=== PATIENT | male | born 1970 | race Caucasian/White ===

== ENCOUNTER → 2017-10-28 09:56 | Outpatient (CLI) | payer OTHER, SELFPAY ==
--- NOTE | 2017-10-28 16:19 | NEURO ---
NCS and/or EMG Patient Report Ordering Doctor: Timothy Marcus DATE OF SERVICE: 10/28/17 Dylan Mays is a 47-year-old male presents for electrodiagnostic testing of the right upper limb. He has a chief complaint of numbness and tingling in the right hand. Electrodiagnostic findings: The right median motor nerve demonstrates normal distal latency, amplitude and conduction velocity. Normal right ulnar motor response, including conduction across the elbow. Normal right median and ulnar f wave. Sensory responses within normal limits. On needle EMG, all muscles tested in the right upper limb showed no evidence of denervation with normal motor unit action potentials. Electrodiagnostic impression: This is a normal electrodiagnostic study in the right upper limb. There is no electrodiagnostic evidence for peripheral neuropathy, including carpal tunnel syndrome. There is no electrodiagnostic evidence for cervical radiculopathy. If there are any further questions, please do not hesitate to contact me.
== END ==
PROVIDERS: Family Provider Family Medicine; PCP Family Medicine; Visit Provider Family Medicine
DX: R20.2 Paresthesia of skin (principal); M62.542 Muscle wasting and atrophy, not elsewhere classified, left hand
CPT/HCPCS: 95886; 95910

== ENCOUNTER → 2018-12-20 09:31 | Outpatient (CLI) | payer OTHER, SELFPAY ==
[2017-10-05 11:28] VITALS: BMI 32.4
[2018-12-20 13:17] LABS: ALB/GLOB Ratio 1.1 RATIO (0.9-2.4); AST(SGOT) 21 U/L (15-37); Alanine Aminotransfer ALT/SGPT 35 U/L (16-61); Albumin, Serum 3.9 g/dL (3.2-5.0); Alkaline Phosphatase 89 U/L (45-117); Anion Gap 16 (5-15); BUN 17 mg/dL (7-18); BUN/Creat Ratio 12.7 RATIO (10-20); Calcium,Total 8.6 mg/dL (8.5-10.1); Chloride 109 mmol/L (98-107); Cholesterol 231 mg/dL (200); Creatinine, Serum 1.34 mg/dL (0.70-1.30); EST Glomerular Filtration Rate 60 mL/min (>60); Est Glom Filt Rate - Afr Amer 73 mL/min (>60); Globulin 3.7 g/dL (2.2-4.2); Glucose 146 mg/dL (74-106); High Density Lipoprotein 63 mg/dL; PSA,Total - Annual Screen 1.14 ng/mL (0.00-4.00); Potassium 3.7 mmol/L (3.5-5.1); Protein, Total 7.6 g/dL (6.4-8.2); Sodium Level 141 mmol/L (136-145); Triglycerides 72 mg/dL; Very Low Density Lipoprotein 14 mg/dL (5-40)
[2018-12-20 13:22] LABS: Rubella IgG > 500.0 IU/mL
[2018-12-22 12:15] LABS: Hep B Surface Antibodies Non Reactive (.); Hepatitis A IgM Antibody Negative (Negative); Mumps Antibody,IgG 93.9 AU/mL (Immune >10.9); Rubeola IgG Ab 63.4 AU/mL (Immune >29.9)
== END ==
PROVIDERS: Family Provider Family Medicine; PCP Family Medicine; Visit Provider Family Medicine
DX: Z00.00 Encounter for general adult medical examination without abnormal findings (principal); Z12.5 Encounter for screening for malignant neoplasm of prostate; Z91.89 Other specified personal risk factors, not elsewhere classified
CPT/HCPCS: 36415; 80053; 80061; 84153; 86706; 86709; 86735; 86762; 86765; G0103

== ENCOUNTER → 2020-02-07 09:54 | Outpatient (CLI) | payer OTHER, SELFPAY ==
[2020-02-07 13:05] LABS: Cholesterol 225 mg/dL (200); High Density Lipoprotein 65 mg/dL; Triglycerides 67 mg/dL; Very Low Density Lipoprotein 13 mg/dL (5-40)
[2020-02-08 10:22] LABS: Glucose 91 mg/dL (74-106)
== END ==
PROVIDERS: Visit Provider Family Medicine
DX: Z00.00 Encounter for general adult medical examination without abnormal findings (principal)
CPT/HCPCS: 36415; 80061; 82947

== ENCOUNTER → 2020-03-15 10:51 | Outpatient (CLI) | payer OTHER, SELFPAY ==
[2017-10-05 11:28] VITALS: BMI 32.4
--- NOTE | 2020-03-15 10:56 | RAD_ITS ---
STUDY: X-RAY - LEFT FOOT CLINICAL: Male, 49 years old. 2ND DIGIT PAIN, NKI TECHNIQUE: 3 view(s) of the foot. COMPARISON: None. FINDINGS: Normal talus, calcaneus, and tarsal bones. Normal visualized subtalar, talonavicular, calcaneocuboid, tarsal and tarsometatarsal articulations. Normal metatarsi. Minimal degenerative changes of the first metatarsophalangeal joint and minimal hypertrophic changes in the head of the first metatarsal. Normal tibial and fibular sesamoid bones. Normal interphalangeal joint of the great toe. Normal phalanges of the great toe. Normal second through fifth metatarsophalangeal joints. Normal interphalangeal joints and phalanges of the lesser toes. The soft tissue structures are unremarkable. RAD/Foot min 3 Views IMPRESSION: Normal second toe, second metatarsal, second metatarsal phalangeal joint and interphalangeal joints. Minimal degenerative changes of the first metatarsophalangeal joint and minimal hypertrophy of the head of the first metatarsal. Electronically Signed: Tejal Kiran MD at 23:04 EDT , Service support ,
== END ==
PROVIDERS: PCP Family Medicine; Referring Provider Family Medicine; Visit Provider Family Medicine
DX: M79.675 Pain in left toe(s) (principal)
CPT/HCPCS: 73630

== ENCOUNTER 2020-03-30 05:55 | Day surgery (SDC) | payer OTHER, SELFPAY ==
[2017-10-05 11:28] VITALS: BMI 32.4
[2020-03-30] VITALS (7 sets, daily range): BP systolic 96–130; BP diastolic 61–92; PULSE 67–76; RESP 16; TEMP 36.1–36.3; O2SAT 94–99; BMI 26.5
--- NOTE | 2020-03-30 | COLBX_PTH ---
PATIENT: EKATERINA DUNCAN LOC: EN U#:[id number] AGE/SX: 49/M ROOM: RE03/30/[address]: Dr. Hardeep Beach MD : 1970 BED: DIS: 03/30/2020 SPEC #: [id number] RECD: 03/30/20 13:46 STATUS: TEAGAN REAmanuel #: [id number] YUE: 03/30/20 00:[address]: Hardeep Beach DEPT: SURGICAL PATHOLOGY RECD BY: Amilcar Smith ENTERED: 03/30/20 13:46 SP TYPE: COLON BX OTHR DR: Dr. Timothy Marcus DO Tissues: Descending colon Procedures: Surgery Specimen Level IV HEADER OPERATION: Colonoscopy - open access (MOD) PRE-OP DIAGNOSIS: Screening TISSUE SUBMITTED: Biopsy of descending colon polyp MICROSCOPIC DIAGNOSIS Descending colon polyp, biopsy: Tubular adenoma. AM:natalia 04/02/20 MICROSCOPIC DESCRIPTION Slides are reviewed. GROSS DESCRIPTION Received in fixative is one container labeled with the patient's name and designated descending colon biopsy. The specimen consists of multiple irregular fragments of light hernandez soft tissue that in aggregate measure 0.6 x 0.5 x 0.1 cm. The specimen is totally submitted in one cassette. / AM:natalia 03/30/20 TC:5 CPT: 30908
[2020-03-30] MEDS: Lactated Ringers 1,000 ML 100 ML IV (06:34)
--- NOTE | 2020-03-30 06:50 | PCM.HP.STD ---
Problem List (1) Screening for intestinal cancer Status: Acute History of Present Illness Date of Admission: 03/30/20 The patient is a 49 year old M who presents for screening colonoscopy today. He presents via open access. He denies any abdominal pain or bright red blood per rectum or melena. He has no family history of colon cancer. He has not had a previous colonoscopy. He states that he otherwise enjoys good health. Past Medical History Medical History: Medical History (Last Updated 10/05/17 @ 11:29 by Sofiya Tony) Back pain M54.9 Allergies morphine Adverse Reaction (Verified 03/30/20 06:21) Vomiting Home Medications: Ambulatory Orders Medication Instructions Recorded NK 03/15/20 Surgical History: Surgical History (Last Updated 10/05/17 @ 11:29 by Sofiya Tony) H/O hand surgery Z98.890 H/O hernia repair Z98.890, Z87.19 Smoking Status: Never smoker Tobacco Use: Non-smoker Review of Systems Constitutional: Denies: Fever Cardiovascular: Denies: Chest Pain Respiratory: Denies: Cough, Shortness of Breath Gastrointestinal: Denies: Abdominal Pain, Melena Endocrine: Denies: Change in Body Habitus VTE Information - Inpt Only VTE Present on Admission: No Patient Problems: Active and Suspected Problems (Last Updated 10/05/17 @ 11:29 by Sofiya Tony) Screening for intestinal cancer (Acute) - Physical Exam Vitals/I&O's: Vital Signs Temp Pulse Resp BP Pulse Ox 97.3 F L 69 16 130/78 H 97 03/30/20 06:23 03/30/20 06:23 03/30/20 06:23 03/30/20 06:23 03/30/20 06:23 Oxygen Delivery Method Room Air Weight: 159 lb 6.307 oz Body Mass Index (BMI) 26.5 General: Alert, Oriented x3, Cooperative, No apparent distress HEENT: Atraumatic Lungs: Clear to auscultation, Normal air movement Cardiovascular: Regular rate, Regular Rhythm Abdomen: Bowel Sounds Present, Soft, Non Tender Extremities: No Calf Tenderness Psych/Mental Status: Normal Affect Laboratory Results 03/26/20 16:40: COVID-19 (JOSE CARLOS) Not Detected Current Medications Lactated Ringer's () 1,000 mls @ 100 mls/hr IV .Q10H LEONORA Last Admin: 03/30/20 06:34 Dose: 100 mls/hr Documented by: Assessment/Plan All Active Problems (Last Updated 10/05/17 @ 11:29 by Sofiya Tony) Screening for intestinal cancer (Acute) URI, acute (Acute) I recommend to the patient a colonoscopy with possible biopsy or polypectomy is indicated. He has had an opportunity to ask and have questions answered. He presents via open access. We will proceed as noted. Hardeep Beach M.D., F.A.C.S. Procedure Criteria Procedure Type: Elective COVID Risk Discussion: The surgeon/proceduralist and patient have discussed in detail the risk of exposure to and/or potential harm posed by the COVID-19 virus with having a surgery/procedure at this time versus the risk of delaying the surgery/procedure. It is not possible to know either the risk of delaying the surgery or procedure or chance of getting an infection with perfect accuracy, but a joint decision was made between the patient and the surgeon/proceduralist to proceed at this time with the scheduled surgery/procedure as indicated on the consent form.
--- NOTE | 2020-03-30 07:23 | OP.CCLET_ITS ---
03/30/2020 Timothy Marcus [address] [place] [address] Re : Colonoscopy procedure for Dylan Suradha Dear Dr. Marcus This procedure was performed on Monday, March 30, 2020. My impressions and recommendations are as follows: Impressions : - Diverticulosis in the sigmoid colon. - One 5 mm polyp in the distal descending colon, removed with a cold biopsy forceps. Resected and retrieved. Recommendations : - Repeat colonoscopy in 5 years for surveillance based on pathology results. - Telephone my office for pathology results in 1 week. - Resume previous diet. - Continue present medications. My findings are described in the full procedure note, which is enclosed. If I can be of further assistance, please feel free to contact me at Doctor phone number(s): Work: . Sincerely, Hardeep Beach MD 03/30/2020 7:22:40 AM This report has been signed electronically.
--- NOTE | 2020-03-30 07:23 | OP.COLON_ITS ---
Patient Name: Dylan Mays Procedure Date: 03/30/2020 6:50 AM Date of : 1970 Age: 49 Procedure: Colonoscopy Indications: Screening for colorectal malignant neoplasm Providers: Hardeep Beach MD Referring MD: Timothy Marcus Medicines: Midazolam 3.5 mg IV, Meperidine 100 mg IV, Ondansetron 4 mg IV Patient Profile: Last Colonoscopy: none. The patient's first colonoscopy is today. Complications: No immediate complications. Procedure: Pre-Anesthesia Assessment: - Prior to the procedure, a History and Physical was performed, and patient medications and allergies were reviewed. The patient's tolerance of previous anesthesia was also reviewed. The risks and benefits of the procedure and the sedation options and risks were discussed with the patient. All questions were answered, and informed consent was obtained. Prior Anticoagulants: The patient has taken no previous anticoagulant or antiplatelet agents. ASA Grade Assessment: I - A normal, healthy patient. After reviewing the risks and benefits, the patient was deemed in satisfactory condition to undergo the procedure. After I obtained informed consent, the scope was passed under direct vision. Throughout the procedure, the patient's blood pressure, pulse, and oxygen saturations were monitored continuously. The colonoscope was introduced through the anus and advanced to the cecum, identified by appendiceal orifice and ileocecal valve. The colonoscopy was performed without difficulty. The patient tolerated the procedure well. The quality of the bowel preparation was good. The ileocecal valve and the appendiceal orifice were photographed. Moderate Sedation: Moderate (conscious) sedation was personally administered by the endoscopist. The following parameters were monitored: oxygen saturation, heart rate, blood pressure, and response to care. Total physician intraservice time was 15 minutes. Scope In: 7:00:38 AM Scope Withdrawal Time 0 hours 8 minutes 5 seconds Scope Out: 7:12:14 AM Total Procedure Duration Time 0 hours 11 minutes 36 seconds Findings: The digital rectal exam was normal. Pertinent negatives include normal prostate (size, shape, and consistency). Scattered diverticula were found in the sigmoid colon. A 5 mm polyp was found in the distal descending colon. The polyp was sessile. The polyp was removed with a cold biopsy forceps. Resection and retrieval were complete. Impression: - Diverticulosis in the sigmoid colon. - One 5 mm polyp in the distal descending colon, removed with a cold biopsy forceps. Resected and retrieved. Recommendation: - Repeat colonoscopy in 5 years for surveillance based on pathology results. - Telephone my office for pathology results in 1 week. - Resume previous diet. - Continue present medications. Procedure Code(s): --- Professional --- 26560, Colonoscopy, flexible; with biopsy, single or multiple 48385, 59, Moderate sedation services provided by the same physician or other qualified health healthcare corporate account director performing the diagnostic or therapeutic service that the sedation supports, requiring the presence of an independent trained observer to assist in the monitoring of the patient's level of consciousness and physiological status; initial 15 minutes of intraservice time, patient age 5 years or older Diagnosis Code(s): --- Professional --- Z12.11, Encounter for screening for malignant neoplasm of colon D12.4, Benign neoplasm of descending colon K57.30, Diverticulosis of large intestine without perforation or abscess without bleeding CPT copyright 2017 [employer]. All rights reserved. The codes documented in this report are preliminary and upon cpc coder review may be revised to meet current compliance requirements. Hardeep Beach MD 03/30/2020 7:22:40 AM This report has been signed electronically. Number of Addenda: 0 Note Initiated On: 03/30/2020 6:50 AM
== END 2020-03-30 08:14 | disposition home or self-care (01) ==
LOC: EN 05:57 → AC 05:57
PROVIDERS: PCP Family Medicine; Referring Provider Family Medicine; Visit Provider Surgery
PROC: 0DJD8ZZ Inspection of Lower Intestinal Tract, Via Natural or Artificial Opening Endoscopic (ICD-10-PCS; CPT 45378; principal; 2020-03-30 06:55)
DX: Z12.11 Encounter for screening for malignant neoplasm of colon (principal); D12.4 Benign neoplasm of descending colon; K57.30 Diverticulosis of large intestine without perforation or abscess without bleeding; Z20.828 Contact with and (suspected) exposure to other viral communicable diseases
CPT/HCPCS: 45380; 87635; 88305; 94799; 99152; 99153; J7120; J2405; U0003

== ENCOUNTER → 2020-04-02 13:27 | Outpatient (CLI) | payer OTHER, SELFPAY ==
[2020-03-30 06:23] VITALS: BMI 26.5
--- NOTE | 2020-04-02 13:29 | RAD_ITS ---
STUDY: X-RAY - RIGHT SHOULDER REASON FOR EXAM: Male, 49 years old. LIFTED SOMETHING AND FELT A POP IN SHOULDER TECHNIQUE: 4 view(s) of the shoulder. COMPARISON: None. FINDINGS: Normal glenohumeral articulation. Normal acromioclavicular joint. Normal acromion. Normal humeral head and visualized proximal humerus. The soft tissue structures are unremarkable. Normal visualized pulmonary apex. RAD/Shoulder min 2 Views IMPRESSION: Normal x-ray examination of the shoulder. Electronically Signed: Wayne Barth, at 15:37 EDT , Service support ,
== END ==
PROVIDERS: PCP Family Medicine; Referring Provider Orthopaedic Surgery; Visit Provider Orthopaedic Surgery
DX: M25.511 Pain in right shoulder (principal)
CPT/HCPCS: 73030

== ENCOUNTER → 2020-05-03 06:21 | Outpatient (CLI) | payer OTHER, SELFPAY ==
[2020-04-02 14:43] VITALS: BMI 26.5
--- NOTE | 2020-05-03 06:22 | MRI_ITS ---
STUDY: MRI RIGHT SHOULDER REASON FOR EXAM: Male, 49 years old. right shoulder pain, some limited r.o.m, pain x 6 mos TECHNIQUE: Standardized fat and water weighted pulse sequences were obtained in all 3 orthogonal planes. COMPARISON: X-ray 04/02/2020 FINDINGS: Mild supraspinatus and infraspinatus tendinosis and peritendinitis as with a 5 x 5 mm concealed interstitial delamination tear of the distal conjoined tendon at the footprint. Normal subscapularis tendon. Normal teres minor tendon. Normal supraspinatus muscle. Normal infraspinatus muscle. Normal subscapularis muscle. Normal teres minor muscle. Normal glenohumeral articulation. Normal humeral head and visualized proximal humerus. Normal biceps labral complex. Longitudinal split tear of the long head of the biceps tendon with superior displacement humeral head consistent with loss of depressor mechanism. There is labral degeneration with areas of fraying, but there is no demonstrated discrete labral tear. Normal capsulo- ligamentous complex. Normal rotator interval. There is mild osteoarthritis of the acromioclavicular articulation. There is a Type II morphology (curved), with a anterior downsloping orientation. There is no subacromial-subdeltoid bursal fluid. Normal visualized coracohumeral and coracoacromial ligaments. Normal quadrilateral space. Normal axillary space. Normal deltoid muscle. Normal trapezius muscle. MRI/Upper Ext Joint Only(Routine) IMPRESSION: 1. Mild supraspinatus and infraspinatus tendinosis and peritendinitis as with a 5 x 5 mm concealed interstitial delamination tear of the distal conjoined tendon at the footprint. No muscular atrophy. 2. Longitudinal split tear of the long head of the biceps tendon with the superior displacement humeral head consistent with loss of depressor mechanism. 3. Mild acromioclavicular joint arthrosis. Anterolateral downsloping acromion with thickening of the coracoacromial ligament produces lateral outlet stenosis. Electronically Signed: Fady Joyner MD at 8:16 EDT Tel , Service support ,
== END ==
PROVIDERS: PCP Family Medicine; Referring Provider Orthopaedic Surgery; Visit Provider Orthopaedic Surgery
DX: M25.511 Pain in right shoulder (principal)
CPT/HCPCS: 73221

== ENCOUNTER → 2020-05-28 18:02 | Outpatient (CLI) | payer OTHER, SELFPAY ==
[2020-05-11 08:09] VITALS: BMI 26.5
== END ==
PROVIDERS: PCP Family Medicine; Referring Provider Family Medicine; Visit Provider Family Medicine
DX: Z03.818 Encounter for observation for suspected exposure to other biological agents ruled out (principal)
CPT/HCPCS: 87635; C9803; U0003

== ENCOUNTER 2020-08-29 17:00 | Outpatient (RCR) | payer OTHER, SELFPAY ==
[2020-05-11 08:09] VITALS: BMI 26.5
--- NOTE | 2020-05-16 18:42 | HP.PTEVAL ---
Patient's Visit Information EKATERINA DUNCAN is a 49 year old M referred to Physical Therapy by Dr. Darinel Menjivar DO with a diagnosis of R shoulder impingement, Biceps tendonitis, Bursitis. Date of Evaluation: 05/16/20 Physical Therapist: CONOR Vicente - Visit Plan Frequency: 2-3x /Week Duration: 4-6 Weeks Plan: 2-3 X/ week for 4-6 weeks for scapular strengthening, posterior joint mobs, RC and bicep (eccentric) strengthening, postural exercises with HEP and modalities for pain to decrease inflammation due to impingement/bicep pain with HEP - Subjective Pt reports that he hurt his shoulder 6 mo ago (thinking with firewood or tractor) and still hurting bad after 3 weeks and saw PCP and tried in home PT exercises and see if got better and tuffed it out and still having trouble and he did MRI and couple things going on. He can do surgery or tough out with PT. He said torn bicep, R shoulder impingement and bursitis. He has increase pain with swatting at a fly with flyswatter and almost brought him to tears. Sleep on it hurts, sleeping the pain wakes him up at times. As long as he does not reach out away from his body. - Pain R shoulder Pain Intensity (Out of 10): 3 Pain Intensity Range: 9 - Objective R handed... R director of market analysis strength 114# L director of market analysis strength 60# hand accident 2010 so comparing sides not accurate. R shoulder AROM: IR T8, Full FLexion but increase popping and pain at end range. ABD to approx 160 with increase pain at end range, ER to 32 degrees with increase pain at end range. L shoulder AROM: IR T12, Full Flexion and ABD with no pain and AROM ER to 55 degrees with no pain. + HK test for impingement. + empty can test for pain. Palpation: tender under the acromion and bicep groove on the R. Explained pathology of impingement and importance of posture. Posture: slouched posture with PPT and rounded shoulders... pt has tightness in posterior capsule on the R shoulder. PROM R shoulder: painful at end range flexion and abd... some painful popping heard/reported that it was painful. - Goals Goal 1:: I HEP Goal Time Frame: 4-6 Weeks Goal 2:: Increase R shoulder AROM to full AROM painfree into flex/abd/ER Goal Time Frame: 4-6 Weeks Goal 3:: Sit with upright posture and no rounded shoulders. Goal Time Frame: 4-6 Weeks Goal 4:: Decrease R shoulder pain to not have pain when reaching out in front of him. Goal Time Frame: 4-6 Weeks - Rehabilitation Potential Rehabilitation Potential: Good - Anticipated Interventions Thank you for the opportunity to evaluate your patient. For Medicare and Medicare HMO plans, please review the plan of care and approve it. It will need to be FAXED BACK to us at [phone] for Medicare purposes. For Medicare only, by signing this I certify the plan of care. Please let me know if there are questions or concerns regarding this plan of care. Physician Signature: Date:
--- NOTE | 2020-06-13 19:01 | HP.PTREVAL ---
Dr. Darinel Menjivar, DO, It has been my pleasure to treat EKATERINA DUNCAN over the last 7 visits for R shoulder impingement, Biceps tendonitis, Bursitis. Please see the progress note below for an update on the physical therapy plan of care! Subjective: Pt reports that he is feeling a little better. He is still favoring his arm and does not do anything with it. He is using the therabands, IR/ER and rows and does it with yellow and getting too easy. Pt did not come to some of his appointments because he was sick....not covid. Objective/Function: Increased burning with S?L ER with a towel and no mid trap substitution Plan Plan: ADD eccentric bicep curls. 2-3 X/ week for additional 4-6 weeks for scapular strengthening, posterior joint mobs, RC and bicep (eccentric) strengthening, postural exercises with HEP and modalities for pain to decrease inflammation due to impingement/bicep pain with HEP Goals Goal 1:: I HEP Goal Time Frame: 4-6 Weeks Goal 2:: Increase R shoulder AROM to full AROM painfree into flex/abd/ER Goal Time Frame: 4-6 Weeks Goal 3:: Sit with upright posture and no rounded shoulders. Goal Time Frame: 4-6 Weeks Goal 4:: Decrease R shoulder pain to not have pain when reaching out in front of him. Goal Time Frame: 4-6 Weeks Anticipated Interventions Please do not hesitate to contact me at [phone] by phone or if you have questions or concerns regarding this new plan of care! Sincerely, Izzy Dozier, MPT
--- NOTE | 2020-08-01 18:22 | HP.PTREVAL ---
Dr. Darinel Menjivar, DO, It has been my pleasure to treat EKATERINA DUNCAN over the last 15 visits for R shoulder impingement, Biceps tendonitis, Bursitis. Please see the progress note below for an update on the physical therapy plan of care! Subjective: Pt is doing well for the most part. He is getting better... not getting worse. Still reaching behind and above his head are still issues. He still struggles wtih laying on his R shoulder.... it was better so he is contributing it to doing something he shouldn't Objective/Function: No issue with any exercises today... we had his arm a little into scaption for 90 ER/IR as opposed to full Abd... Increase pain with palpation to the anterior shoulder under acrominion and possible bicep grrove Plan Plan: Focus on introduction of more scapular exercises and may do US to anterior shoulder if pt still compoaining of pain there.... 2-3 X/ week for additional 4-6 weeks for scapular strengthening, posterior joint mobs, RC and bicep (eccentric) strengthening, postural exercises with HEP and modalities for pain to decrease inflammation due to impingement/bicep pain with HEP Goals Goal 1:: I HEP Goal Time Frame: 4-6 Weeks Goal Progress: Goal Met Goal 2:: Increase R shoulder AROM to full AROM painfree into flex/abd/ER Goal Time Frame: 4-6 Weeks Goal 3:: Sit with upright posture and no rounded shoulders. Goal Time Frame: 4-6 Weeks Goal 4:: Decrease R shoulder pain to not have pain when reaching out in front of him. Goal Time Frame: 4-6 Weeks Goal Progress: Progressing Anticipated Interventions Please do not hesitate to contact me at [phone] by phone or if you have questions or concerns regarding this new plan of care! Sincerely, CONOR Vicente
== END 2020-08-29 19:00 | disposition home or self-care (01) ==
LOC: PT 17:00
PROVIDERS: PCP Family Medicine; Referring Provider Orthopaedic Surgery; Visit Provider Orthopaedic Surgery
DX: M75.41 Impingement syndrome of right shoulder (principal); M75.21 Bicipital tendinitis, right shoulder; M75.51 Bursitis of right shoulder
CPT/HCPCS: 97035; 97110; 97161

== ENCOUNTER 2020-12-30 09:02 | Emergency (ER) | payer OTHER, SELFPAY ==
[2020-05-11 08:09] VITALS: BMI 26.5
[2020-12-30 09:03] VITALS: BP 137/76; PULSE 79; RESP 17; TEMP 36.1; O2SAT 97; BMI 28.0
--- NOTE | 2020-12-30 09:37 | RAD_ITS ---
STUDY: X-RAY - LUMBAR SPINE REASON FOR EXAM: Male, 50 years old. Injury/Pain TECHNIQUE: 3 view(s) of the lumbar spine were obtained. COMPARISON: None FINDINGS: Normal lumbar lordosis. Mild levoscoliosis centered at L4. There is a normal alignment of the vertebrae. Normal vertebral bodies and endplates. Normal disc space heights. The soft tissue structures are unremarkable. RAD/Lumbar Spine 2 or 3 Views IMPRESSION: 1. No acute fracture or subluxation. 2. Mild levoscoliosis. Electronically Signed: Fady Joyner MD at 10:29 EDT Tel , Service support ,
[2020-12-30] MEDS: Naproxen 500 MG Tablet PO (10:04)
--- NOTE | 2020-12-30 10:12 | EDS_ITS ---
HPI History of Present Illness Chief Complaint: Back Informant: patient Onset/Context/Timing Onset: Yesterday Injury: bending Timing: Continuous Quality: Sharp and - (Stabbing) Location: Lumbar and Right Leg Worsened by: improves with Nothing Relieved by: Nothing Associated Symptoms Associated Symptoms: Numbness and Radiation to Right Leg; Negative for Radiation to Left Leg, Fever, Abdominal Pain, Dysuria, Unable to Ambulate, Unable to Transfer, Urinary Retention, Urinary Incontinence, Constipation and Fecal Incontinence Narrative Narrative: Patient presents with back pain that began yesterday. Patient states she was bending forward when the pain began. Patient states pain is over the right lower lumbar area. Patient denies any trauma or injury. Patient states the pain radiates down his right lower leg. Patient admits to some numbness in his right lower leg. Patient denies any bowel or bladder changes. Patient denies any saddle anesthesia. [facility] Medical History Back pain Home Medications naproxen 500 mg PO BID PRN #20 tab 12/30/20 [Rx Last Taken Unknown] Allergy/AdvReac Type Severity Reaction Status Date / Time morphine AdvReac Vomiting Verified 12/30/20 09:02 Surgical History H/O hand surgery H/O hernia repair Social History Smoking Status: Never smoker alcohol intake: never ROS ROS ED Constitutional Constitutional ED: Denies chills or fever(s) Eyes Eyes: Denies blurry vision or change in vision ENT ENT ED: Denies rhinorrhea or sore throat Cardiovascular Cardiovascular: Denies chest pain or palpitations Respiratory/Chest Respiratory/Chest: Denies cough or dyspnea Gastrointestinal Gastrointestinal: Denies nausea or vomiting Genitourinary Genitourinary ED: Denies dysuria or hematuria Musculoskeletal Musculoskeletal: Reports back pain; Denies neck pain Integumentary Denies abscess or rash Neurologic Neurologic: Reports paresthesias RLE; Denies headache(s) or weakness Allergic/Immunologic Allergic/Immunologic ED: Denies mouth swelling or urticaria EXAM Physical Exam Const Vital Signs: 12/30/20 09:03 Temperature 96.9 F L Temperature Source Temporal Pulse Rate 79 Respiratory Rate 17 Blood Pressure 137/76 H Blood Pressure Mean 96 Pulse Ox 97 Oxygen Delivery Method Room Air Positive well nourished and well developed General Appearance ED: well developed HEENT Reports moist mucous membranes Neck supple and no JVD Back/Spine Back/Spine Narrative: There is tenderness over the lumbar spine and right lumbar paraspinal muscles. There is some tenderness over the sciatic notch. Range of motion was slightly limited in all motions of the lumbar spine secondary to pain. There is no edema or ecchymosis noted. Strength is 5/5 bilaterally in the lower extremities. There are no sensory deficits noted. Lumbar Spine / Lower Back: straight leg raise negative bilaterally Neuro oriented x3 and no sensory deficits noted Sensorium / Orientation: alert Motor Exam: strength 5/5 throughout Deep Tendon Reflexes: Rt Patellar (L4): 1+, Lt Patellar (L4): 1+, Rt Ankle (S1): 1+ and Lt Ankle (S1): 1+ Deep Tendon Reflexes Back: Rt Patellar (L4): 1+, Lt Patellar (L4): 1+, Rt Ankle (S1): 1+ and Lt Ankle (S1): 1+ Psych mental status grossly normal MDM MDM MDM Narrative Medical decision making narrative: Patient was given a dose of Naprosyn here. X-rays of the lumbar spine were obtained. There are 3 views. On my interpretation, there is some mild degenerative changes. There is no acute fracture. There is no spondylolisthesis or spondylolysis. Radiologist also interpreted the x-rays and agrees. Patient was given a prescription for Naprosyn. Patient was instructed to use ice to the area. Patient was instructed to follow-up with his primary care physician in 5 to 7 days. Patient was instructed return if worse in any way. Patient understood and was agreeable with the plan. All questions were answered. Radiography X-Ray: LS SPine, Read by ED Physician, Read by Radiologist, No Fracture, Normal Bony Alignment and DJD Diagnostic Testing: Radiology Impression Lumbar Spine X-Ray 12/30/20 09:37 IMPRESSION: 1. No acute fracture or subluxation. 2. Mild levoscoliosis. Electronically Signed: Fady Joyner MD at 10:29 EDT Tel , Service support , Discharge Plan Triage Chief Complaint: Back ED Provider: Connor Lyles Dx/Rx/DC Orders Clinical Impression: Sciatica of right side Prescriptions: New naproxen 500 MG tablet 500 mg PO BID PRN Qty: 20 RF: 0 Primary Care Provider: Timothy Marcus Referrals: Timothy Marcus DO [Primary Care Provider] - 5-7 Days Disposition Disposition: Home, self care
== END 2020-12-30 11:15 | disposition home or self-care (01) ==
PROVIDERS: Emergency Provider Emergency Medicine; PCP Family Medicine
DX: M54.41 Lumbago with sciatica, right side (principal)
CPT/HCPCS: 72100; 99283

== ENCOUNTER → 2022-12-25 | Outpatient (CLI) | payer OTHER, SELFPAY ==
[2022-12-25 15:50] LABS: ALB/GLOB Ratio 1.1 RATIO (0.9-2.4); AST(SGOT) 48 U/L (15-37); Alanine Aminotransfer ALT/SGPT 92 U/L (16-61); Alkaline Phosphatase 76 U/L (45-117); Anion Gap 7 (5-15); BUN 18 mg/dL (7-18); Calcium,Total 8.9 mg/dL (8.5-10.1); Chloride 108 mmol/L (98-107); Cholesterol 227 mg/dL (200); Creatinine, Serum 0.86 mg/dL (0.70-1.30); EST Glomerular Filtration Rate 99 mL/min (>60); Est Glom Filt Rate - Afr Amer 120 mL/min (>60); Globulin 3.8 g/dL (2.2-4.2); Glucose 82 mg/dL (74-106); High Density Lipoprotein 64 mg/dL; Potassium 3.6 mmol/L (3.5-5.1); Protein, Total 7.8 g/dL (6.4-8.2); Sodium Level 139 mmol/L (136-145); Triglycerides 137 mg/dL; Very Low Density Lipoprotein 27 mg/dL (5-40)
== END | disposition home or self-care (01) ==
LOC: BFHLAB 13:45
PROVIDERS: PCP Family Medicine; Referring Provider Family Medicine; Visit Provider Family Medicine
DX: Z00.00 Encounter for general adult medical examination without abnormal findings (principal)
CPT/HCPCS: 36415; 80053; 80061; 84153; G0103

== ENCOUNTER 2024-03-25 10:53 | Day surgery (SDC) | payer OTHER, SELFPAY ==
[2024-03-25] VITALS (8 sets, daily range): BP systolic 87–115; BP diastolic 60–84; PULSE 65–78; RESP 16; TEMP 36.1–36.2; O2SAT 94–97; BMI 29.6
[2024-03-25] MEDS: Lactated Ringers 1,000 ML 15 ML IV (11:25)
--- NOTE | 2024-03-25 11:38 | PRE.ANES_ITS ---
ASA Classification* ASA Classification ASA Classification: 2 Assessment & Plan Anesthesia* Anesthesia Assessment Anesthesia Assessment: Discussed sedation and/or anesthesia options, risks, benefits, and alternatives with patient/parents/legal guardian/POA. Questions invited. The patient/parents/legal guardian/POA seems to understand and agrees to proceed with anesthesia plan. Reviewed the physical assessment, medical history, allergy history and patient home medications list prior to surgery/procedure/anesthetic and documented any changes. Performed airway and anesthesia risk assessments. Anesthesia Type Anesthesia Type: MAC History Source History Obtained from:: Patient and Chart Anesthesia Focused Assessment* Temperature: 97 F Pulse Rate: 78 Blood Pressure: 115/84 Respiratory Rate: 16 Pulse Ox: 97 Oxygen Delivery Method: Room Air Airway Assessment Mouth opens: >3 cm Mallampati Score: IV Teeth Condition: Caps/Crowns (Patient has several crowns that are all tight.) Neck Range of motion (ROM): Full ROM Focused Labs Anesthesia Preop lab: CBC WBC 5.8 K/mm3 (4.4-11.0) 02/17/14 11:11 RBC 5.22 M/mm3 (4.6-6.2) 02/17/14 11:11 Hgb 16.3 g/dl (13.0-16.5) 02/17/14 11:11 Hct 45.4 % (40-54) 02/17/14 11:11 Plt Count 246 K/mm3 (150-450) 02/17/14 11:11 CHEMISTRY Potassium 3.6 mmol/L (3.5-5.1) 12/25/22 13:46 Sodium 139 mmol/L (136-145) 12/25/22 13:46 BUN 18 mg/dL (7-18) 12/25/22 13:46 Creatinine 0.86 mg/dL (0.70-1.30) 12/25/22 13:46 Glucose 82 mg/dL (74-106) 12/25/22 13:46 COAG Pre-Assessment Diagnosis/Proposed Procedure Planned Operative Procedure(s): EGD/CSCOPE Anesthesia History 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 When Was Last Pacemaker Check QUESTION #4 FULL TEXT: You/Your Family Experience fever (hyperthermia) with Anesthesia Last Oral Intake Last Oral intake: Last Oral Intake NPO since 07:00 03/25/24 11:18 Meds taken in AM with sips of water? Meds patient instructed to take am of surgery Any additional information?: Yes Meds patient instructed to take am of surgery: Patient finished prep at 8:00. PONV PONV - unemployment insurance hearing officer: PONV - unemployment insurance hearing officer Female No 03/22/24 09:19 HX of Motion Sickness Yes 03/22/24 09:19 HX of N/V After Surgery Yes 03/22/24 09:19 Non-Smoker Yes 03/22/24 09:19 Duration of Surgery greater No 03/22/24 09:19 than 60 minutes Number of Risk Factors 3 03/22/24 09:19 PONV Score Moderate Risk 03/22/24 09:19 Height & Weight Height & Weight: Anesthesia: Height & Weight Height 5 ft 5 in 03/25/24 11:18 Weight: 80.739 kg 03/25/24 11:18 Body Mass Index (BMI) 29.6 03/25/24 11:18 Respiratory Assessment Respiratory Assessment - unemployment insurance hearing officer: Respiratory Tract Infection Hx - unemployment insurance hearing officer Hx Respiratory Tract Infection No 03/22/24 09:19 STOP Sleep Apnea STOP Sleep Apnea - unemployment insurance hearing officer: STOP Sleep Apnea - unemployment insurance hearing officer Hx Hypertension No 03/22/24 09:19 Hx Sleep Apnea No 03/22/24 09:19 CPAP No 03/30/20 07:17 BIPAP Do you snore loudly (louder No 03/22/24 09:19 than talking or can be heard Do you often feel tired/ No 03/22/24 09:19 fatigued/ sleepy during daytime? Has anyone observed you stop No 03/22/24 09:19 breathing during sleep? STOP Results Negative 03/22/24 09:19 QUESTION #5 FULL TEXT : Do you snore loudly (louder than talking or can be heard through closed doors)? 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 Specify any problems Hx of Preganancy in last 3 N/A 03/22/24 09:19 Months Nurse Filling Out Transfusion DSCHRIBER 03/22/24 09:19 & Questions: Date: 03/22/24 03/22/24 09:19 Time: 09:21 03/22/24 09:19 Patient unable to answer at this time (ie. confused, unrespo /Reproduction History /Reproductive History - unemployment insurance hearing officer: /Reproductive Hx- unemployment insurance hearing officer Hx Now No 03/22/24 09:19 Gestational Age (in weeks): EDC: Hx Hx Para Hx Section SAB No 03/22/24 09:19 Active Medications Active Medications: Current Medications Generic Name Dose Route Start Last Admin Trade Name Freq PRN Reason Stop Dose Admin Lactated Ringer's 1,000 mls @ 15 mls/hr 03/25/24 11:15 03/25/24 11:25 IV 15 mls/hr .Q48H LEONORA Administration PFSH Medical History Wears glasses Injury of back Non-smoker History of colon polyps GERD (gastroesophageal reflux disease) Hyperlipidemia Atrophy of left hand muscles Home Medications ?Medication ?Instructions ?Recorded ?Last Taken ?Type omeprazole 40 mg capsule,delayed 40 mg PO DAILY 03/01/24 Unknown History release Allergy/AdvReac Type Severity Reaction Status Date / Time morphine AdvReac Vomiting Verified 03/25/24 11:17 Surgical History History of esophagogastroduodenoscopy (EGD) Hx of colonoscopy H/O hernia repair H/O hand surgery Social History household members: significant other and children number of children: 2 current occupational status: employed 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
--- NOTE | 2024-03-25 12:00 | COLBX_PTH ---
PATIENT: EKATERINA DUNCAN LOC: EN U#:[id number] AGE/SX: 53/M ROOM: RE03/25/[address]: Dr. Fredy Tatum DO : 1970 BED: DIS: 03/25/2024 SPEC #: [id number] RECD: 03/25/24 14:18 STATUS: TEAGAN REAmanuel #: [id number] YUE: 03/25/24 12:[address]: Fredy Tatum DEPT: SURGICAL PATHOLOGY RECD BY: Flavio Vega ENTERED: 03/28/24 09:10 SP TYPE: COLON BX OTHR DR: Dr. Timothy Marcus DO Tissues: A - Esophagus, NOS B - Esophagus, NOS C - Sigmoid colon biopsy Procedures: Special Stain Group I Surgery Specimen Level IV Alcian Blue/PAS (control) HEADER OPERATION: Colonoscopy, EGD, biopsy and polypectomy PRE-OP DIAGNOSIS: Gastroesophageal reflux disease TISSUE SUBMITTED: A- Distal esophagus biopsy, B- Random esophagus biopsy, C- Sigmoid polyp MICROSCOPIC DIAGNOSIS A. Distal esophagus, biopsy: Fragments of gastric mucosa with chronic inflammation. No evidence of goblet cell metaplasia. See comment. B. Esophagus, random biopsy: Suggestive of eosinophilic esophagitis. See comment. C. Sigmoid colon polyp, biopsy: Tubular adenoma. AM/ 03/29/2024 COMMENT A. Alcian blue/PAS stain with matched control is used in the evaluation of the specimen. B. The eosinophils number between 5-15 per high power field. Clinical correlation is suggested. MICROSCOPIC DESCRIPTION Slides are reviewed. GROSS DESCRIPTION A. Received in fixative is one container labeled with the patient's name and designated Distal esophagus biopsy. The specimen consists of two irregular fragments of light hernandez soft tissue that in aggregate measure 0.6 x 0.3 x 0.1 cm. The specimen is totally submitted in one cassette. B. Received in fixative is one container labeled with the patient's name and designated Random esophagus biopsy. The specimen consists of multiple irregular fragments of light hernandez soft tissue that in aggregate measure 0.6 x 0.5 x 0.1 cm. The specimen is totally submitted in one cassette. C. Received in fixative is one container labeled with the patient's name and designated Sigmoid polyp. The specimen consists of two irregular fragments of light hernandez soft tissue that in aggregate measure 0.4 x 0.3 x 0.1 cm. The specimen is totally submitted in one cassette. SJ.mr 03/28/2024 TC:3 CPT:46934x4,32932
--- NOTE | 2024-03-25 12:10 | PCM.HP.BLA ---
History and Physical Date of Admission: 03/25/24 53 M who presents to the office today for establishment with I for worsening GERD. For about 1 month he has been having severe reflux symptoms that wake him up at night. He feels acid coming up his throat. He has also been having coughing episodes after eating. He was seen by his PCP and started on omeprazole 40 mg daily and Carafate. He feels the omeprazole has helped but the Carafate has not. He denies abdominal pain, diarrhea, constipation, weight loss, or fever. Says he has been gaining some weight and wonders if this has made his GERD worse. He has had an EGD in the past but not sure when or what they found. He does have some recollection that he had his esophagus dilated. Colonoscopy 03.30.[address] Beach: - Diverticulosis in the sigmoid colon. One 5 mm polyp in the distal descending colon, removed with a cold biopsy forceps. Resected and retrieved. Biopsy came back as tubular adenoma ROS Const Constitutional: Positive for weight change; No fatigue or fever(s) ENT ENT: No difficulty swallowing Gastro GI: Positive for heartburn; No abdominal pain, belching, bloating, change in bowel habits, change in stool character, coffee ground emesis, constipation, cramping, diarrhea, difficulty swallowing, feeling full early, excessive flatus, incontinent of stools, Vomiting blood/hematemesis, Blood in stool, loose stools, Black,tarry stools, nausea/dyspepsia, pain with swallowing, vomiting or other Musc Musculoskeletal: Positive for stiffness; No joint pain Skin Skin: No yellowing of the eye or itchy eyes Psych Psychiatric: No anxiety and No depression Endo Endocrine: Positive for weight change; No fatigue Aller/Imm Allergy/Immunologic: No itchy eyes Ethan/Lymp Hematologic/Lymphatic: No easy bleeding or easy bruising Exam Const General: cooperative and comfortable Nutritional Appearance: average body habitus and well nourished [facility] Head: normal to inspection Ears: hearing grossly normal bilaterally Nose: external nose normal Face and sinus: normal facial exam Mouth: oral mucosae normal Throat: posterior oropharynx normal Eyes General: appearance normal, both eyes and all related structures Neck Neck: normal visual inspection Chest Chest palpation & inspection: normal inspection of the chest and normal palpation of entire chest wall Resp Effort & Inspection: normal respiratory effort Auscultation: Bilateral: Clear to Auscultation Cardio Palpation: normal PMI Rate: regular rate Rhythm: regular rhythm GI Inspection: normal to inspection Auscultation: normal bowel sounds Percussion: normal to percussion Palpation: no hepatosplenomegaly Skin General: no rashes or lesions noted Neuro General: patient alert Extrem General: normal to inspection Psych Affect: normal affect Assessment and Plan Assessment and Plan (1) Gastroesophageal reflux disease: Plan: Patient is here today to establish with [facility] for worsening GERD. -He will continue taking omeprazole 40 mg daily -He will no longer take the Carafate -Recommended taking famotidine as needed for breakthrough pain -We will schedule him for EGD and colonoscopy. He has hx of tubular adenoma and last colon was 4 years ago. Recommended just getting both procedures done at the same time since he will need colonoscopy in a year anyway. I have examined the patient and the H&P has been reviewed. There are no clinical changes since date of exam.
--- NOTE | 2024-03-25 13:03 | OP.CCLET_ITS ---
03/25/2024 Timothy Marcus [address] [facility] [place] [address] Re : Upper GI endoscopy procedure for Dylna Mays Dear Dr. Marcus This procedure was performed on Monday, March 25, 2024. My impressions and recommendations are as follows: Impressions : - LA Grade A reflux esophagitis with no bleeding. Biopsied. - Esophageal mucosal changes suggestive of eosinophilic esophagitis. - Large hiatal hernia. - No gross lesions in the first portion of the duodenum. - Biopsies were taken with a cold forceps for evaluation of eosinophilic esophagitis. Recommendations : - Discharge patient to home. - Resume previous diet. - Continue present medications. - Await pathology results. My findings are described in the full procedure note, which is enclosed. If I can be of further assistance, please feel free to contact me at . Sincerely, Fredy Tatum, 03/25/2024 1:02:37 PM This report has been signed electronically.
--- NOTE | 2024-03-25 13:03 | OP.EGD_ITS ---
Patient Name: Dylan Mays Procedure Date: 03/25/2024 11:51 AM Date of : 1970 Age: 53 Procedure: Upper GI endoscopy Indications: Heartburn Providers: Fredy Tatum DO Referring MD: Fredy Tatum DO Medicines: Monitored Anesthesia Care Patient Profile: This is a 53 year old male. Refer to note in patient chart for documentation of history and physical. Patient has symptoms of chronic heartburn. Complications: No immediate complications. Procedure: Pre-Anesthesia Assessment: - Prior to the procedure, a History and Physical was performed, and patient medications and allergies were reviewed. The patient is competent. The risks and benefits of the procedure and the sedation options and risks were discussed with the patient. All questions were answered and informed consent was obtained. Patient identification and proposed procedure were verified by the physician in the pre-procedure area. Mental Status Examination: alert and oriented. Airway Examination: normal oropharyngeal airway and neck mobility. Respiratory Examination: clear to auscultation. CV Examination: normal. Prophylactic Antibiotics: The patient does not require prophylactic antibiotics. Prior Anticoagulants: The patient has taken no anticoagulant or antiplatelet agents. ASA Grade Assessment: II - A patient with mild systemic disease. After reviewing the risks and benefits, the patient was deemed in satisfactory condition to undergo the procedure. The anesthesia plan was to use monitored anesthesia care (MAC). Immediately prior to administration of medications, the patient was re-assessed for adequacy to receive sedatives. The heart rate, respiratory rate, oxygen saturations, blood pressure, adequacy of pulmonary ventilation, and response to care were monitored throughout the procedure. The physical status of the patient was re-assessed after the procedure. After obtaining informed consent, the endoscope was passed under direct vision. Throughout the procedure, the patient's blood pressure, pulse, and oxygen saturations were monitored continuously. The Colonoscope was introduced through the mouth, and advanced to the second part of duodenum. The upper GI endoscopy was accomplished without difficulty. The patient tolerated the procedure well. Scope In: 12:32:32 PM Scope Out: 12:38:22 PM Total Procedure Duration Time 0 hours 5 minutes 50 seconds Findings: LA Grade A (one or more mucosal breaks less than 5 mm, not extending between tops of 2 mucosal folds) esophagitis with no bleeding was found 36 to 39 cm from the incisors. Biopsies were taken with a cold forceps for histology. Verification of patient identification for the specimen was done. Estimated blood loss was minimal. Mucosal changes including feline appearance, longitudinal furrows and small-caliber esophagus were found in the upper third of the esophagus and in the middle third of the esophagus. Biopsies were obtained from the proximal and distal esophagus with cold forceps for histology of suspected eosinophilic esophagitis. Verification of patient identification for the specimen was done. Estimated blood loss was minimal. A large hiatal hernia was present. No other significant abnormalities were identified in a careful examination of the stomach. No gross lesions were noted in the first portion of the duodenum. Impression: - LA Grade A reflux esophagitis with no bleeding. Biopsied. - Esophageal mucosal changes suggestive of eosinophilic esophagitis. - Large hiatal hernia. - No gross lesions in the first portion of the duodenum. - Biopsies were taken with a cold forceps for evaluation of eosinophilic esophagitis. Recommendation: - Discharge patient to home. - Resume previous diet. - Continue present medications. - Await pathology results. Procedure Code(s): --- Professional --- 04896, Esophagogastroduodenoscopy, flexible, transoral; with biopsy, single or multiple CPT copyright 2021 [employer]. All rights reserved. The codes documented in this report are preliminary and upon grinder review may be revised to meet current compliance requirements. Fredy Tatum DO 03/25/2024 1:02:37 PM This report has been signed electronically. Number of Addenda: 0 Note Initiated On: 03/25/2024 11:51 AM
--- NOTE | 2024-03-25 13:04 | OP.COLON_ITS ---
Patient Name: Dylan Mays Procedure Date: 03/25/2024 12:38 PM Date of : 1970 Age: 53 Procedure: Colonoscopy Indications: Screening for colorectal malignant neoplasm Providers: Fredy Tatum DO Referring MD: Fredy Tatum DO Medicines: Monitored Anesthesia Care Patient Profile: This is a 53 year old male. Refer to note in patient chart for documentation of history and physical. Patient has symptoms of chronic heartburn. Last Colonoscopy: date unknown. Unable to locate last colonoscopy report. Complications: No immediate complications. Procedure: Pre-Anesthesia Assessment: - Prior to the procedure, a History and Physical was performed, and patient medications and allergies were reviewed. The patient is competent. The risks and benefits of the procedure and the sedation options and risks were discussed with the patient. All questions were answered and informed consent was obtained. Patient identification and proposed procedure were verified by the physician in the pre-procedure area. Mental Status Examination: alert and oriented. Airway Examination: normal oropharyngeal airway and neck mobility. Respiratory Examination: clear to auscultation. CV Examination: normal. Prophylactic Antibiotics: The patient does not require prophylactic antibiotics. Prior Anticoagulants: The patient has taken no anticoagulant or antiplatelet agents. ASA Grade Assessment: II - A patient with mild systemic disease. After reviewing the risks and benefits, the patient was deemed in satisfactory condition to undergo the procedure. The anesthesia plan was to use monitored anesthesia care (MAC). Immediately prior to administration of medications, the patient was re-assessed for adequacy to receive sedatives. The heart rate, respiratory rate, oxygen saturations, blood pressure, adequacy of pulmonary ventilation, and response to care were monitored throughout the procedure. The physical status of the patient was re-assessed after the procedure. After I obtained informed consent, the scope was passed under direct vision. Throughout the procedure, the patient's blood pressure, pulse, and oxygen saturations were monitored continuously. The Colonoscope was introduced through the anus and advanced to the cecum, identified by appendiceal orifice and ileocecal valve. The colonoscopy was performed without difficulty. The patient tolerated the procedure well. The quality of the bowel preparation was adequate. The ileocecal valve, appendiceal orifice, and rectum were photographed. Scope In: 12:40:02 PM Scope Withdrawal Time 0 hours 13 minutes 0 seconds Scope Out: 12:55:06 PM Total Procedure Duration Time 0 hours 15 minutes 4 seconds Findings: The perianal and digital rectal examinations were normal. A 5 mm polyp was found in the sigmoid colon. The polyp was sessile. The polyp was removed with a cold snare. Resection and retrieval were complete. Verification of patient identification for the specimen was done. Estimated blood loss was minimal. A few small-mouthed diverticula were found in the sigmoid colon. The exam was otherwise without abnormality on direct and retroflexion views. Impression: - One 5 mm polyp in the sigmoid colon, removed with a cold snare. Resected and retrieved. - Diverticulosis in the sigmoid colon. - The examination was otherwise normal on direct and retroflexion views. Recommendation: - Discharge patient to home. - Resume previous diet. - Continue present medications. - Await pathology results. - Repeat colonoscopy in 5 years for surveillance. Procedure Code(s): --- Professional --- 47632, Colonoscopy, flexible; with removal of tumor(s), polyp(s), or other lesion(s) by snare technique CPT copyright 2021 [employer]. All rights reserved. The codes documented in this report are preliminary and upon pharmacist critical care review may be revised to meet current compliance requirements. Fredy Tatum DO 03/25/2024 1:04:37 PM This report has been signed electronically. Number of Addenda: 0 Note Initiated On: 03/25/2024 12:38 PM
--- NOTE | 2024-03-25 13:05 | OP.CCLET_ITS ---
03/25/2024 Timothy Marcus [address] [place] [address] Re : Colonoscopy procedure for Dylan Mays Dear Dr. Marcus This procedure was performed on Monday, March 25, 2024. My impressions and recommendations are as follows: Impressions : - One 5 mm polyp in the sigmoid colon, removed with a cold snare. Resected and retrieved. - Diverticulosis in the sigmoid colon. - The examination was otherwise normal on direct and retroflexion views. Recommendations : - Discharge patient to home. - Resume previous diet. - Continue present medications. - Await pathology results. - Repeat colonoscopy in 5 years for surveillance. My findings are described in the full procedure note, which is enclosed. If I can be of further assistance, please feel free to contact me at . Sincerely, Fredy Tatum, 03/25/2024 1:04:37 PM This report has been signed electronically.
--- NOTE | 2024-03-25 13:06 | PCM.POST.ANE ---
Anesthesia: Postop Eval I Current Vital Signs Temperature: 97.2 F Pulse Rate: 71 Blood Pressure: 91/64 Respiratory Rate: 16 Pulse Ox: 95 Oxygen Delivery Method: Room Air Assessment Airway patent: Yes Spontaneous unlabored respirations: Yes Mental status: Asleep nausea: No Vomiting: No Anesthesia Complication: No Fluid Hydration Crystalloid volume administer (ml): 800 Total IV fluid infused: 800 Progress Note Anesthesia document: Postop Eval 1 completed: Yes
--- NOTE | 2024-03-25 13:14 | PCM.POSTANE2 ---
Anesthesia Postop Eval I Sum Postop Eval Completion status Anesthesia document: Postop Eval 1 completed: Yes Anesthesia Postop Eval I Summary Anesthesia Postop Eval I Summary: Anesthesia Postop Eval I: Assessment Summary Airway patent Yes 03/25/24 13:07 [email or web address] Spontaneous unlabored Yes 03/25/24 13:07 [email or web address] respirations Mental status Asleep 03/25/24 13:07 [email or web address] nausea No 03/25/24 13:07 [email or web address] Vomiting No 03/25/24 13:07 [email or web address] Anesthesia Postop Eval I: Fluid Summary Crystalloid volume administer 800 03/25/24 13:07 [email or web address] (ml) Colloids volume administered ( ml) Blood Product volume administered (ml) Total IV fluid infused 800 03/25/24 13:07 [email or web address] Anesthesia Postop Eval I: Summary Notes Anesthesia Complication No 03/25/24 13:07 [email or web address] Anesthesia Complication Comment: Post-operative progress note Anesthesia: Postop Eval II Evaluation Mental status: Awake Pain Level: 0 nausea: No Vomiting: No
== END 2024-03-25 13:49 | disposition home or self-care (01) ==
LOC: EN 10:56 → AC 10:57
PROVIDERS: PCP Family Medicine; Referring Provider Family Medicine; Visit Provider Internal Medicine Gastroenterology
PROC: 0DJD8ZZ Inspection of Lower Intestinal Tract, Via Natural or Artificial Opening Endoscopic (ICD-10-PCS; CPT 45378; principal; 2024-03-25 11:55)
DX: Z12.11 Encounter for screening for malignant neoplasm of colon (principal); D12.5 Benign neoplasm of sigmoid colon; K57.30 Diverticulosis of large intestine without perforation or abscess without bleeding; K21.00 Gastro-esophageal reflux disease with esophagitis, without bleeding; K44.9 Diaphragmatic hernia without obstruction or gangrene; Z79.899 Other long term (current) drug therapy; Z86.010 Personal history of colon polyps
CPT/HCPCS: 43239; 45385; 88305; 88312; J7120; J2405

== ENCOUNTER → 2024-04-19 | Outpatient (CLI) | payer OTHER, SELFPAY ==
[2024-04-23 16:09] LABS: Beef 0.39 kU/L (Class I); Chocolate <0.10 kU/L (Class 0); Codfish <0.10 kU/L (Class 0); Corn 0.23 kU/L (Class 0/I); Egg, Whole 0.15 kU/L (Class 0/I); Milk (Cow) 0.75 kU/L (Class II); Mussels <0.10 kU/L (Class 0); Peanut <0.10 kU/L (Class 0); Salmon <0.10 kU/L (Class 0); Shrimp <0.10 kU/L (Class 0); Soybean <0.10 kU/L (Class 0); Tuna <0.10 kU/L (Class 0); Wheat 1.45 kU/L (Class III)
== END | disposition home or self-care (01) ==
LOC: LAB 12:07
PROVIDERS: PCP Family Medicine; Referring Provider Internal Medicine Gastroenterology; Visit Provider Internal Medicine Gastroenterology
DX: K20.0 Eosinophilic esophagitis (principal)
CPT/HCPCS: 36415; 86003; 86005

== ENCOUNTER → 2024-05-06 | Outpatient (CLI) | payer OTHER, SELFPAY ==
--- NOTE | 2024-05-06 12:52 | NM_ITS ---
CLINICAL: 53-year-old male with history of hiatal hernia and gastroesophageal reflux disease. SEMI-SOLID PHASE 99m Tc SULFUR COLLOID GASTRIC EMPTYING STUDY COMPARISON: None available FINDINGS: The patient was administered 1.0 mCi of 99m Tc sulfur colloid mixed with oatmeal and consumed per os. Image acquisitions in the anterior-posterior projections were obtained for 60 minutes. There is prompt visualization of the stomach. There is no gastroesophageal reflux identified. The T ? linear fit was calculated to be 34.08 minutes, (Normal: 12-56 minutes). NM/Gastric Emptying Study IMPRESSION: 1. NORMAL 99m Tc sulfur colloid semi-solid phase (oatmeal) gastric emptying imaging examination. A. There is normal and preserved semi-solid phase gastric emptying compared to normal controls. (Tammy et al, J Nucl Med Tech 38: 186, 2010). Electronically Signed: Fady Garay DO at 12:10 EDT ,
== END | disposition home or self-care (01) ==
LOC: NM 12:45
PROVIDERS: PCP Family Medicine; Referring Provider Internal Medicine Gastroenterology; Visit Provider Internal Medicine Gastroenterology
DX: K21.9 Gastro-esophageal reflux disease without esophagitis (principal)
CPT/HCPCS: 78264; A9541

== ENCOUNTER → 2024-10-03 | Outpatient (CLI) | payer OTHER, SELFPAY ==
[2024-10-03 17:58] LABS: Absolute Lymphocyte Count 2.12 X10^3/uL (0.83-4.51); Absolute Neutrophil Count 3.1 X10^3/uL (2.0-7.7); Basophil# 0.04 X10^3/uL; Basophil% 0.7 % (0-1); Eosinophil# 0.13 X10^3/uL; Eosinophils% 2.2 % (0-5); Lymphocyte # 2.12 X10^3/ul (0.83-4.51); Mean Corp Hgb Conc 34.8 g/dL (32-36); Mean Corpuscular Hgb 30.8 pg (27.0-32.0); Mean Corpuscular Volume 88.6 fL (80-94); Mean Platelet Vol. 9.4 fl (6.2-12.0); Monocyte# 0.52 X10^3/uL; Monocyte% 8.8 % (0-10); NRBC Flagged by Analyzer 0 % (0-5); Neutrophil # 3.06 X10^3/uL (2.7-7.7); Platelet Count 217 K/mm3 (150-450); RBC Distribution Width CV 12.7 % (11.6-14.6); RBC Distribution Width SD 41.3 fl (35.1-43.9); Red Blood Count 5.19 M/mm3 (4.6-6.2); White Blood Count 5.9 K/mm3 (4.4-11.0)
[2024-10-03 21:27] LABS: ALB/GLOB Ratio 1.5 RATIO (0.9-2.4); AST(SGOT) 30 U/L (<=37); Alanine Aminotransfer ALT/SGPT 37 U/L (<=46); Albumin, Serum 4.6 g/dL (3.5-5.0); Alkaline Phosphatase 86 U/L (40-129); BUN 12 mg/dL (4-19); BUN/Creat Ratio 13.9 RATIO (10-20); Creatinine, Serum 0.86 mg/dL (0.70-1.20); EST Glomerular Filtration Rate 102 (>60); Glucose 87 mg/dL (70-99); PSA,Total - Annual Screen 1.15 ng/mL (0.02-4.00); Protein, Total 7.6 g/dL (5.9-8.4); Total Bilirubin 0.63 mg/dL (0.00-1.30)
[2024-10-03 22:07] LABS: Anion Gap 14 (5-15); Calcium,Total 9.6 mg/dL (7.6-11.0); Carbon Dioxide 22.5 mmol/L (21.0-32.0); Chloride 102 mmol/L (98-108); Potassium 4.1 mmol/L (3.3-5.1); Sodium Level 138 mmol/L (133-145)
[2024-10-03 23:00] LABS: Cholesterol 225 mg/dL (<=200); High Density Lipoprotein 63 mg/dL; Low Density Lipoprotein Calc. 143 mg/dL; Triglycerides 96 mg/dL; Very Low Density Lipoprotein 19 mg/dL (5-40); cholesterol:hdl ratio screen 3.58
== END | disposition home or self-care (01) ==
LOC: BFHLAB 16:17
PROVIDERS: PCP Family Medicine; Referring Provider Family Medicine; Visit Provider Family Medicine
DX: Z00.00 Encounter for general adult medical examination without abnormal findings (principal); Z12.5 Encounter for screening for malignant neoplasm of prostate
CPT/HCPCS: 36415; 80053; 80061; 84153; 85025; G0103

== ENCOUNTER 2024-11-30 16:45 | Observation (INO) | payer OTHER, SELFPAY ==
[2024-11-30 16:45] VITALS: BP 157/102; PULSE 85; RESP 20; TEMP 36.1; O2SAT 97; BMI 29.9
--- NOTE | 2024-11-30 16:55 | ED.RN ---
INFORMED DR. ELIZALDE AND DR. SIMMONS ABOUT PT SX. SWELLING OF EYES AND LIPS, L SIDED FACIAL DROOP AND DECREASED SENSATION ON L FACE AND ARM. NO NEW ORDERS AT THIS TIME.
--- NOTE | 2024-11-30 17:01 | CT_ITS ---
EXAM: STROKE BRAIN/HEAD WITHOUT CONT CLINICAL HISTORY: 54 y/o M with NEURO DEFICIT, ACUTE, STROKE SUSPECTED. Left-sided paresthesia. COMPARISON: None. TECHNIQUE: Routine CT imaging of the head without IV contrast. Additional multiplanar reformats were obtained. Dose reduction techniques were used including intermediate exposure control (AEC),iterative reconstruction technique, and/or mA and/or KV dose adjustments based on patient's size. FINDINGS: No acute intracranial hemorrhage or herniation. Minimal scattered supratentorial white matter hypodensities. The bullock-white matter interfaces are otherwise maintained. No ventriculomegaly. The basal cisterns are patent. The orbits are unremarkable. Mild mucosal thickening of the left maxillary sinus. The visualized paranasal sinuses and mastoid air cells are otherwise well-aerated. No acute calvarial fracture or scalp hematoma. CT/STROKE Brain/Head without Cont IMPRESSION: No acute intracranial finding. Reading Location: [id number]
--- NOTE | 2024-11-30 17:01 | EKG12_ITS ---
Test Reason : STROKE ALERT Blood Pressure : */* mmHG Vent. Rate : 73 BPM Atrial Rate : 73 BPM P-R Int : 188 ms QRS Dur : 84 ms QT Int : 400 ms P-R-T Axes : 34 -10 4 degrees QTcB Int : 440 ms Normal sinus rhythm Inferior infarct , age undetermined Abnormal ECG Confirmed by HERNANDEZ BLACK MD ([id number]), clinical editor ODELL LOREDO ([id number]) on 12/01/2024 1:26:44 PM Referred By: Confirmed By: HERNANDEZ BLACK MD
--- NOTE | 2024-11-30 17:02 | CT_ITS ---
PROCEDURE: STROKE CTA HEAD AND NECK W/CON 11/30/2024 REASON FOR EXAM: NEURO DEFICIT, ACUTE, STROKE SUSPECTED TECHNIQUE: CTA imaging of the head and neck from the aortic arch to the skull vertex with out contrast and with intravenous contrast. Multiplanar and multisequence images were obtained. CONTRAST: Omnipaque 350 VOLUME: 100 mL Not Provided Gauge IV One or more dose reduction techniques were used (e.g., Automated exposure control, adjustment of the mA and/or kV according to patient size, use of iterative reconstruction technique). COMPARISON: None FINDINGS: Aortic Arch: Normal size and branching pattern. No significant atherosclerotic plaque. Brachiocephalic and Subclavians: Unremarkable RIGHT Carotid: Right CCA: Unremarkable. Right ICA: Unremarkable. Maximum stenosis (NASCET): 0 % Right ECA: Unremarkable. LEFT Carotid: Left CCA: Unremarkable. Left ICA: Unremarkable. Maximum stenosis (NASCET): 0 % Left ECA: Unremarkable. Vertebrals: Codominant. Arise from the subclavians. Both vertebrals form the basilar. RIGHT Vertebral: Unremarkable. LEFT Vertebral: Unremarkable. Anatomy: [place] anatomy is normal. Aneurysm or avm: No intracranial aneurysms or large vascular malformations are identified. Anterior cerebral arteries: Unremarkable: Middle cerebral arteries: Unremarkable. Basilar artery: Unremarkable. Posterior cerebral arteries: Unremarkable. Other major branches of the posterior circulation: Unremarkable. Major venous structures: Unremarkable. Other findings: Neck: No lymphadenopathy. Lungs: Lung apices are clear. Bones: Mild degenerative changes of the cervical spine. CT/STROKE CTA Head AND Neck W/Con IMPRESSION: Patent anterior and posterior intracranial and extracranial circulation without hemodynamically significant stenosis. Reading Location: [facility]
--- NOTE | 2024-11-30 17:02 | EDS_ITS ---
HPI History of Present Illness Chief Complaint: Stroke Alert Informant: patient Onset/Context/Timing Onset: Hours (1.5) Context: Sudden Onset Timing: Continuous Quality: Numbness Location: Left face, left arm, left leg Worsened by: Nothing Relieved by: Nothing Narrative Narrative: Patient presents with possible allergic reaction that occurred today. Patient states he started having symptoms approximately 90 minutes prior to arrival. Patient noted some weakness to the left side of his face and numbness to the left arm and leg. Patient denies any extremity weakness. Patient does admit to a mild headache. Patient denies any visual changes. Patient denies any d ifficulties with speech. Patient denies any difficulty swallowing. Patient admits to a mild cough but denies any shortness of breath. Patient denies any chest pain. [facility] Medical History Wears glasses Injury of back Non-smoker History of colon polyps GERD (gastroesophageal reflux disease) Hyperlipidemia Atrophy of left hand muscles Home Medications ?Medication ?Instructions ?Recorded ?Last Taken ?Type farcawb-cpjoqgfxlqnuk-onuzqlpi 250 1 tab PO Q4H PRN he adache 11/30/24 11/30/24 History mg-250 mg-65 mg tablet (Excedrin Extra Strength) omeprazole 40 mg capsule,delayed 40 mg PO DAILY 11/29/24 History release Allergy/AdvReac Type Severity Reaction Status Date / Time morphine AdvReac Vomiting Verified 11/30/24 16:45 Surgical History History of esophagogastroduodenoscopy (EGD) Hx of colonoscopy H/O hernia repair H/O hand surgery Social History household members: significant other and children number of children: 2 current occupational status: employed current occupation: [employer] Smoking Status: Never smoker alcohol intake: never substance use type: does not use ROS ROS ED Constitutional Constitutional ED: Denies chills or fever(s) Eyes Eyes: Denies blurry vision or change in vision ENT ENT ED: Denies rhinorrhea or sore throat Cardiovascular Cardiovascular: Denies chest pain or palpitations Respiratory/Chest Respiratory/Chest: Reports cough; Denies dyspnea Gastrointestinal Gastrointestinal: Denies nausea or vomiting Genitourinary Genitourinary ED: Denies dysuria or hematuria Musculoskeletal Musculoskeletal: Denies back pain or neck pain Integumentary Denies abscess or rash Neurologic Neurologic: Reports headache(s) and paresthesias LUE and LLE; Denies weakness Allergic/Immunologic Allergic/Immunologic ED: Denies mouth swelling or urticaria EXAM Physical Exam Const Vital Signs: 11/30/24 16:45 11/30/24 17:01 11/30/24 17:45 Temperature 96.9 F L Temperature Source Temporal Pulse Rate 85 79 Respiratory Rate 20 H 19 H Blood Pressure 157/102 H 125/91 H Blood Pressure Mean 120 102 Pulse Ox 97 94 Oxygen Delivery Method Room Air Room Air Room Air 11/30/24 18:02 Temperature 98.3 F Temperature Source Pulse Rate 79 Respiratory Rate 19 H Blood Pressure 125/91 H Blood Pressure Mean 102 Pulse Ox 94 Oxygen Delivery Method Positive well nourished and well developed General Appearance ED: well developed and NAD HEENT Reports moist mucous membranes Neck supple and no JVD Resp normal respiratory effort and clear to auscultation bilaterally Cardio regular rate and regular rhythm GI non-tender and non-distended Palpation: soft Extremity normal to inspection General Extremety ED: Negative for edema or tenderness General Extremity: Negative for edema Neuro oriented x3 Neuro Narrative: There is left facial weakness. There is decreased sensation to light touch over the left upper and lower extremities. Sensorium / Orientation: alert Motor Exam: strength 5/5 throughout Psych mental status grossly normal MDM MDM MDM Narrative Medical decision making narrative: Stroke alert was called due to the onset of symptoms approximately 1-1/2 hours prior to arrival. CT scan of the brain will be obtained to assess for stroke and intracranial bleeding. CTA of the head and neck will be obtained to assess for large vessel occlusion and carotid stenosis. EKG will be obtained to assess for cardiac dysrhythmia and cardiac ischemia. CBC will be obtained to assess for leukocytosis or anemia. Basic metabolic profile will be obtained to assess for electrolyte abnormality and renal function. PT with INR and PTT will be obtained to assess for coagulopathy. High-sensitivity troponin series will be ordered to assess for cardiac ischemia. Lab Data Attestation: I reviewed the patient's lab results. Lab results narrative: CBC was reviewed and was within normal limits. Basic metabolic profile was reviewed and was within normal limits. PT with INR and PTT were reviewed and were within normal limits. High-sensitivity troponin was reviewed and was less than 6. BGT was reviewed and was normal at 85. Labs: Laboratory Results - last 24 hr 11/30/24 11/30/24 17:01 17:04 WBC 6.8 RBC 5.16 Hgb 16.2 Hct 45.7 MCV 88.6 MCH 31.4 MCHC 35.4 RDW Std Deviation 42.1 RDW Coeff of Angie 12.9 Plt Count 215 MPV 8.7 Immature Gran % (Auto) 0.300 Neut % (Auto) 57.1 Lymph % (Auto) 31.5 Mchenry % (Auto) 7.8 Eos % (Auto) 2.7 Baso % (Auto) 0.6 Absolute Neuts (auto) 3.9 Absolute Lymphs (auto) 2.13 Nucleated RBC % 0 PT 13.1 INR 1.0 APTT 25.8 Sodium 139 Potassium 4.0 Chloride 104 Carbon Dioxide 24.3 Anion Gap 11 BUN 15 Creatinine 1.02 Estim Creat Clear Calc 78.01 Est GFR (MDRD) Non-Af 86 BUN/Creatinine Ratio 14.5 Glucose 93 Calcium 9.0 Troponin T High Sens < 6 POC Glucose 85 Radiography Diagnostic Testing: Clinical Impression(s) from Imaging Studies Brain CT 11/30/24 17:01 IMPRESSION: No acute intracranial finding. Reading Location: [facility] CT scan of the brain was obtained. There is no acute intracranial abnormality. This was interpreted by the radiologist and was also independently reviewed by myself. Management Discussion w/another healthcare provider: Hospitalist (Dr. Solis) and Senior Database Programmer (Dr. Encarnacion) Treatment and Re-Evaluation :: Patient was evaluated by stroke neurologist. He recommended aspirin and statin. He recommended admission for MRI and further evaluation for possible stroke. He does not recommend tenecteplase at this time since his NIH score is very low. Case was discussed with the hospitalist. He will admit the patient to his service. Patient understood and was agreeable with the plan. All questions were answered. Discharge Plan Triage Chief Complaint: Stroke Alert Other Complaint: Allergic Reaction ED Provider: Connor Lyles Dx/Rx/DC Orders Clinical Impression: Paresthesias, Facial weakness, Elevated blood pressure reading Prescriptions: No Action Excedrin Extra Strength 250-250-65 mg tablet 1 tab PO Q4H PRN (Reason: headache) omeprazole 40 mg capsule,delayed release(DR/EC) 40 mg PO DAILY Primary Care Provider: Timothy Marcus Referrals: Timothy Marcus DO [Primary Care Provider] - Print Language: Lao Disposition Disposition: Acute Care Hospital [facility]
[2024-11-30 17:10] VITALS: BMI 29.9
[2024-11-30 17:12] LABS: Absolute Lymphocyte Count 2.13 X10^3/uL (0.83-4.51); Absolute Neutrophil Count 3.9 X10^3/uL (2.0-7.7); Basophil# 0.04 X10^3/uL; Basophil% 0.6 % (0-1); Eosinophil# 0.18 X10^3/uL; Eosinophils% 2.7 % (0-5); Hematocrit 45.7 % (40-54); Hemoglobin 16.2 g/dL (13.0-16.5); Lymphocyte # 2.13 X10^3/ul (0.83-4.51); Lymphocyte % 31.5 % (19-41); Mean Corp Hgb Conc 35.4 g/dL (32-36); Mean Corpuscular Hgb 31.4 pg (27.0-32.0); Mean Corpuscular Volume 88.6 fL (80-94); Mean Platelet Vol. 8.7 fl (6.2-12.0); Monocyte# 0.53 X10^3/uL; Monocyte% 7.8 % (0-10); NRBC Flagged by Analyzer 0 % (0-5); Neutrophil # 3.87 X10^3/uL (2.7-7.7); Neutrophil % 57.1 % (47-70); Platelet Count 215 K/mm3 (150-450); RBC Distribution Width CV 12.9 % (11.6-14.6); RBC Distribution Width SD 42.1 fl (35.1-43.9); Red Blood Count 5.16 M/mm3 (4.6-6.2); White Blood Count 6.8 K/mm3 (4.4-11.0)
[2024-11-30 17:19] LABS: Bedside Glucose 85 mg/dL (74-106)
[2024-11-30 17:38] LABS: Prothrombin Time (Protime)PT. 13.1 SECONDS (11.7-14.9)
[2024-11-30 17:39] LABS: Partial Thromboplast Time 25.8 Seconds (24.1-36.2)
[2024-11-30 17:43] LABS: Anion Gap 11 (5-15); BUN 15 mg/dL (4-19); BUN/Creat Ratio 14.5 RATIO (10-20); Carbon Dioxide 24.3 mmol/L (21.0-32.0); Chloride 104 mmol/L (98-108); Creatinine, Serum 1.02 mg/dL (0.70-1.20); EST Glomerular Filtration Rate 86 (>60); Estimated Creatinine Clearance 78.01 ml/min (50-250); Glucose 93 mg/dL (70-99); Sodium Level 139 mmol/L (133-145); Troponin T High Sensitivity < 6 ng/L (<=22)
[2024-11-30 17:45] VITALS: BP 125/91; PULSE 79; RESP 19; O2SAT 94
[2024-11-30] MEDS: Aspirin 81 MG TAB.CHEW 324 MG PO (17:45)
[2024-11-30 18:02] VITALS: BP 125/91; PULSE 79; RESP 19; TEMP 36.8; O2SAT 94
--- NOTE | 2024-11-30 18:09 | MRI_ITS ---
PROCEDURE: BRAIN WITHOUT CONTRAST 11/30/2024 REASON FOR EXAM: CVA TECHNIQUE: Noncontrast brain MRI. Multiplanar and multisequence images were obtained. COMPARISON: CT brain and CTA head and neck 11/30/2024 FINDINGS: BRAIN/PARENCHYMA: No evidence of acute infarction or acute intracranial hemorrhage. There are subcortical and periventricular white matter FLAIR hyperintensities, likely related to chronic microvascular ischemic disease. EXTRA-AXIAL SPACES: No abnormal extra-axial fluid collections. Patent basal cisterns and foramen magnum. MIDLINE SHIFT: None. VENTRICLES: No hydrocephalus. SCALP SOFT TISSUES & CALVARIUM: No significant abnormality. VISUALIZED SINUSES & MASTOIDS: No air-fluid levels in the paranasal sinuses. The mastoid air cells are clear. ARTERIAL FLOW VOIDS: Preserved major arterial flow voids indicating gross patency. MRI/Brain without Contrast IMPRESSION: No acute intracranial abnormality. Mild chronic microvascular ischemic changes. Reading [facility]
--- NOTE | 2024-11-30 18:09 | ECHOD_ITS ---
Reason For Study Reason For Study: TIA/CVA Procedure This was a 2D Doppler, Color Flow transthoracic echocardiogram. Exam performed portable in patient room. Left Ventricle Sigmoid septum. Normal LV size. Left ventricular systolic function is normal. The estimated ejection fraction is 65 %. No evidence for diastolic dysfunction. Right Ventricle Normal RV size. Normal systolic function. Atria Normal left atrium. Normal right atrium. Bubble contrast study is negative for PFO/ASD. Mitral Valve The mitral valve is structurally normal. No prolapse or stenosis seen. Tricuspid Valve Normal tricuspid valve. Trivial tricuspid valve insufficiency. Pulmonary artery systolic pressure is 25 mmHg. Aortic Valve Trisinus/trileaflet aortic valve. Pulmonic Valve Normal pulmonic valve. Trivial pulmonic valve insufficiency. Great Vessels Normal sized aortic root. Pericardium/Pleural No pericardial effusion. Medication Performed a rapid injection of agitated mix of 9 cc saline and 1cc air to assess for atrial septal defect. MMode/2D Measurements & Calculations LVIDd: 4.0 cm IVSd: 1.0 cm LVOT diam: 2.1 cm LVIDs: 2.6 cm LVPWd: 1.0 cm RVDd: 3.2 cm FS: 35.5 % LVOT area: 3.6 cm2 Ao root diam: 3.5 cm LAV(MOD-bp): 51.1 ml LVAd ap4: 31.0 cm2 LAV(MOD-bp) Indexed: 27.4 ml/m2 LVLd ap4: 8.5 cm LAV(MOD-sp2): 50.4 ml EDV(MOD-sp4): 94.1 ml LAV(MOD-sp4): 53.4 ml EDV(sp4-el): 95.9 ml LVAs ap4: 16.3 cm2 LVLs ap4: 7.5 cm ESV(MOD-sp4): 30.4 ml ESV(sp4-el): 30.1 ml EF(MOD-sp4): 67.7 % EF(sp4-el): 68.6 % LVAd ap2: 25.7 cm2 SV(MOD-sp4): 63.7 ml SV(MOD-sp2): 49.7 ml LVLd ap2: 7.7 cm SI(MOD-sp4): 34.2 ml/m2 SI(MOD-sp2): 26.6 ml/m2 EDV(MOD-sp2): 72.1 ml EDV(sp2-el): 72.4 ml LVAs ap2: 13.0 cm2 LVLs ap2: 6.7 cm ESV(MOD-sp2): 22.5 ml ESV(sp2-el): 21.5 ml EF(MOD-sp2): 68.9 % SV(sp4-el): 65.8 ml Ao sinus diam: 3.[address] Junction: 3.2 cm LA dimension(2D): 3.7 cm LA A4 area: 17.9 cm2 RA A4 area: 10.5 cm2 TAPSE: 2.0 cm Time Measurements MV dec time: 0.20 sec Doppler Measurements & Calculations MV E max alexis: 84.9 cm/sec Lat Peak E' Alexis: 10.5 cm/sec Med Peak E' Alexis: 7.6 cm/sec MV A max alexis: 73.6 cm/sec E/E' lat: 8.1 E/E' med: 11.2 MV E/A: 1.2 MV V2 max: 85.4 cm/sec MV P1/2t max alexis: 85.4 cm/sec Ao V2 max: 138.5 cm/sec MV max P.9 mmHg MV P1/2t: 50.7 msec Ao max P.7 mmHg MV V2 mean: 54.2 cm/sec MV dec slope: 493.0 cm/sec2 Ao V2 mean: 102.9 cm/sec MV mean P.3 mmHg Ao mean P.5 mmHg MV V2 VTI: 22.6 cm MVA(P1/2t): 4.3 cm2 Ao V2 VTI: 29.5 cm MVA(VTI): 4.5 cm2 AV (velocity ratio): 0.97 NICKIE(I,D): 3.4 cm2 NICKIE(V,D): 3.5 cm2 LV V1 max: 136.4 cm/sec SV(LVOT): 101.6 ml PA V2 max: 118.5 cm/sec LV V1 max P.4 mmHg PA V2 mean: 84.1 cm/sec LV V1 mean P.3 mmHg LV V1 mean: 98.3 cm/sec LV V1 VTI: 28.6 cm TR max alexis: 232.8 cm/sec TR max P.7 mmHg ECHO/Echo Complete Interpretation Summary The estimated ejection fraction is 65 %. No evidence for diastolic dysfunction. Structually normal valves. Bubble contrast study is negative for PFO/ASD. Ordering Physician: Lester Solis Referring Physician: Timothy Marcus Performed By: Viviane Wilson RDCS, RVT
--- NOTE | 2024-11-30 19:16 | PCM.HP.STD ---
HPI - General General Date of Admission: 11/30/24 HPI Narrative EKATERINA DUNCAN, is a 54 M who presents to the hospital with what appears to be an allergic reaction. He over the last month has been noticing episodes where he would get facial swelling initially it started to just around his lips and then progressed to today where his lips and his face were swollen, his eyes were injected and he felt that his throat was full though he denied any shortness of breath. His states that his voice is different but his speech is not slurred more consistent with an allergic reaction than a stroke however he was complaining of also blurry vision in his left eye and appeared initially on admission to have a left facial droop. He says that his primary care doctor is ordered an extensive allergy panel which did not have any significant reactions to it, and he denies any family history of angioedema and does not take any medications regularly other than omeprazole. He states that the first time he had this happened it happened after he had taken omeprazole but since that time he has taken the same medication without any issues, and today he took an Excedrin before this happened. [facility] Medical History Wears glasses Injury of back Non-smoker History of colon polyps GERD (gastroesophageal reflux disease) Hyperlipidemia Atrophy of left hand muscles Home Medications ?Medication ?Instructions ?Recorded ?Last Taken ?Type cpltbqg-[id number]-[id number] 250 1 tab PO Q4H PRN headache 11/30/24 11/30/24 History mg-250 mg-65 mg tablet (Excedrin Extra Strength) omeprazole 40 mg capsule,delayed 40 mg PO DAILY 11/30/24 11/29/24 History release Allergy/AdvReac Type Severity Reaction Status Date / Time morphine AdvReac Vomiting Verified 11/30/24 16:45 Family History (Updated 11/30/24 @ 19:[address] Lester Solis MD) Other Diabetes Surgical History History of esophagogastroduodenoscopy (EGD) Hx of colonoscopy H/O hernia repair H/O hand surgery Social History household members: significant other and children number of children: 2 current occupational status: employed current occupation: [employer] Smoking Status: Never smoker alcohol intake: never substance use type: does not use ROS Constitutional Constitutional: Denies chills, fatigue, fever(s) or malaise Eyes Eyes: Reports blurry vision ENT HEENT: Reports hoarseness, lip swelling and throat swelling; Denies headache(s), nasal discharge or tongue swelling Cardiovascular Cardiovascular: Denies chest pain, dyspnea on exertion or syncope Respiratory/Chest Respiratory/Chest: Denies cough, shortness of breath at rest or shortness of breath with exertion Gastrointestinal Gastrointestinal: Denies constipation, diarrhea, nausea or vomiting Genitourinary Genitourinary: Denies dysuria Neurologic Neurologic: Reports other Details: Facial droop ; Denies focal weakness, numbness or tremor(s) Psychiatric Psychiatric: Denies anxiety or depression Vital Signs Vital Signs Vital Signs: 11/30/24 16:45 11/30/24 17:01 11/30/24 17:45 Temperature 96.9 F L Temperature Source Temporal Pulse Rate 85 79 Respiratory Rate 20 H 19 H Blood Pressure 157/102 H 125/91 H Blood Pressure Mean 120 102 Pulse Ox 97 94 Oxygen Delivery Method Room Air Room Air Room Air 11/30/24 18:02 Temperature 98.3 F Temperature Source Pulse Rate 79 Respiratory Rate 19 H Blood Pressure 125/91 H Blood Pressure Mean 102 Pulse Ox 94 Oxygen Delivery Method Weight Weight: 180 lb 1.883 oz Body Mass Index (BMI) 29.9 Physical Exam Narrative General: Alert, Oriented x3, Cooperative, No apparent distress HEENT: Atraumatic, PERRLA, EOMI, Normocephalic mild and improving conjunctival injection Oral: Moist Mucosa, upper lip swelling Neck: Supple, No JVD Lungs: Clear to auscultation, Normal air movement, No rhonchi, No wheeze, No rales Cardiovascular: Regular rate, Regular Rhythm, Normal S1, Normal S2, No murmurs Abdomen: Soft, Non Tender, Non-Distended, No Hepato-splenomegaly Extremities: No edema, Capillary Refill Less than 3 Seconds Skin: No rashes, No breakdown Musculoskeletal: No Tenderness to Palpation of Joints or Extremities Neurological: No focal neurological deficits, moves all extremities, no facial droop, NIH of 0 Psych/Mental Status: Normal Affect, Appropriate Results Lab / Micro Data 11/30/24 17:04 11/30/24 17:04 Labs: Laboratory Results - last 24 hr 11/30/24 17:01: POC Glucose 85 11/30/24 17:04: WBC 6.8, RBC 5.16, Hgb 16.2, Hct 45.7, MCV 88.6, MCH 31.4, MCHC 35.4, RDW Std Deviation 42.1, RDW Coeff of Angie 12.9, Plt Count 215, MPV 8.7, Immature Gran % (Auto) 0.300, Neut % (Auto) 57.1, Lymph % (Auto) 31.5, Duval % (Auto) 7.8, Eos % (Auto) 2.7, Baso % (Auto) 0.6, Absolute Neuts (auto) 3.9, Absolute Lymphs (auto) 2.13, Nucleated RBC % 0, PT 13.1, INR 1.0, APTT 25.8, Sodium 139, Potassium 4.0, Chloride 104, Carbon Dioxide 24.3, Anion Gap 11, BUN 15, Creatinine 1.02, Estim Creat Clear Calc 78.01, Est GFR (MDRD) Non-Af 86, BUN/Creatinine Ratio 14.5, Glucose 93, Calcium 9.0, Troponin T High Sens < 6 Imaging Radiology Impression Brain CT 11/30/24 17:01 IMPRESSION: No acute intracranial finding. Reading Location: [facility] Head/Neck CTA 11/30/24 17:02 IMPRESSION: Patent anterior and posterior intracranial and extracranial circulation without hemodynamically significant stenosis. Reading Location: [facility] Assessment & Plan Assessment/Plan (1) Facial swelling: PLAN: Plan 1. Possible angioedema versus generalized allergic reaction in the setting of a possible stroke ? Given the swelling I do think that stroke is unlikely however given the left facial droop seen initially on admission as well as the blurry vision will obtain an MRI and echo ? Will continue with aspirin and Lipitor ? Will obtain a C1 esterase inhibitor as well as a complement C4 for possible angioedema ? Everything is improving so he is not in any danger of respiratory compromise at this time so we will continue to monitor ? I had an extensive conversation with him and his and we were unable to determine any consistent topical or ingested agent for each event but they have noted that it is getting worse with each event 2. GERD ? Stable ? Continue with PPI DVT: SCDs 60 minutes was spent on direct patient care, including documentation as well as chart review and collaboration with colleagues Charges/Coding Visit Charges Inpatient E&M: 28914 Init Hosp L2
--- NOTE | 2024-11-30 19:26 | ED.RN ---
Troponin draw delayed due to patient being in MRI.
[2024-11-30 19:27] VITALS: BMI 29.0
--- NOTE | 2024-11-30 20:25 | CM.ED ---
Social Work Reason for visit: Stroke Alert Patient was brought in by . stated that patient had been experiencing periodic swelling on one side of his face, she states they thought maybe it was an allergic reaction to something. states they got allergy testing done but the symptoms continued and tonight seemed worse than before. Emotional support provided. No needs identified at this time. Coleen Choudhury, TRANSPORTATION CONSULTANT, MANUFACTURING ENGINEER [employer]SEMBLY
[2024-11-30 20:45] VITALS: BP 148/106; PULSE 66; RESP 18; TEMP 36.2; O2SAT 98
[2024-11-30] MEDS: Atorvastatin Calcium 80 MG Tablet PO (21:14)
[2024-11-30 21:17] LABS: Troponin T High Sens 2 HR < 6 ng/L (<=22)
[2024-11-30 22:13] VITALS: BMI 29.0
[2024-11-30 22:38] VITALS: O2SAT 97
[2024-11-30 22:59] LABS: Troponin T High Sens 4 HR < 6 ng/L (<=22)
[2024-12-01] VITALS: BP 115/68; PULSE 82; RESP 16; TEMP 36.3; O2SAT 96
[2024-12-01 04:40] VITALS: BP 131/88; PULSE 90; RESP 16; TEMP 36.2; O2SAT 96
[2024-12-01 06:33] LABS: Absolute Lymphocyte Count 1.36 X10^3/uL (0.83-4.51); Absolute Neutrophil Count 3.3 X10^3/uL (2.0-7.7); Basophil# 0.04 X10^3/uL; Basophil% 0.7 % (0-1); Eosinophil# 0.26 X10^3/uL; Eosinophils% 4.7 % (0-5); Lymphocyte # 1.36 X10^3/ul (0.83-4.51); Lymphocyte % 24.8 % (19-41); Mean Corp Hgb Conc 34.9 g/dL (32-36); Mean Corpuscular Volume 88.8 fL (80-94); Mean Platelet Vol. 8.8 fl (6.2-12.0); Monocyte# 0.56 X10^3/uL; Monocyte% 10.2 % (0-10); NRBC Flagged by Analyzer 0 % (0-5); Neutrophil # 3.25 X10^3/uL (2.7-7.7); Neutrophil % 59.4 % (47-70); Platelet Count 216 K/mm3 (150-450); RBC Distribution Width CV 12.9 % (11.6-14.6); RBC Distribution Width SD 42.1 fl (35.1-43.9); Red Blood Count 4.84 M/mm3 (4.6-6.2); White Blood Count 5.5 K/mm3 (4.4-11.0)
[2024-12-01 08:23] LABS: Cholesterol 193 mg/dL (<=200); High Density Lipoprotein 42 mg/dL; Low Density Lipoprotein Calc. 98 mg/dL; Triglycerides 262 mg/dL; Very Low Density Lipoprotein 52 mg/dL (5-40); cholesterol:hdl ratio screen 4.57
--- NOTE | 2024-12-01 08:23 | PCM.PN.HOSP ---
Reason for Visit Reason for Visit: Diagnoses Localized swelling, mass and lump, head (11/30/24) Subjective Subjective Patient is a 54-year-old gentleman admitted with facial and lip swelling.Patient did experience subjective weakness involving the left extremities as well as numbness involving the left face. Admitted to a monitored bed as a case of possible TIA Objective Data Objective Data Vital Signs: Vital Signs Temp Pulse Resp BP Pulse Ox O2 Del Method 97.1 F L 90 16 131/88 H 96 Room Air 12/01/24 04:40 12/01/24 04:40 12/01/24 04:40 12/01/24 04:40 12/01/24 04:40 12/01/24 07:56 Oxygen Delivery Method Room Air Weight: 79.1 kg Body Mass Index (BMI) 29.0 Intake & Output: Intake and Output for Last 24 Hours 11/29/24 11/30/24 12/01/24 23:59 23:59 23:59 Intake Total 200 / 200 Balance 200 / 200 Lab / Micro Data 12/01/24 05:53 12/01/24 05:53 Labs: Laboratory Results - last 24 hr 11/30/24 17:01: POC Glucose 85 11/30/24 17:04: WBC 6.8, RBC 5.16, Hgb 16.2, Hct 45.7, MCV 88.6, MCH 31.4, MCHC 35.4, RDW Std Deviation 42.1, RDW Coeff of Angie 12.9, Plt Count 215, MPV 8.7, Immature Gran % (Auto) 0.300, Neut % (Auto) 57.1, Lymph % (Auto) 31.5, Mora % (Auto) 7.8, Eos % (Auto) 2.7, Baso % (Auto) 0.6, Absolute Neuts (auto) 3.9, Absolute Lymphs (auto) 2.13, Nucleated RBC % 0, PT 13.1, INR 1.0, APTT 25.8, Sodium 139, Potassium 4.0, Chloride 104, Carbon Dioxide 24.3, Anion Gap 11, BUN 15, Creatinine 1.02, Estim Creat Clear Calc 78.01, Est GFR (MDRD) Non-Af 86, BUN/Creatinine Ratio 14.5, Glucose 93, Calcium 9.0, Troponin T High Sens < 6 11/30/24 20:20: Troponin T Hi Sens 2 Hr < 6 11/30/24 22:05: Troponin T Hi Sens 4Hr < 6 12/01/24 05:53: WBC 5.5, RBC 4.84, Hgb 15.0, Hct 43.0, MCV 88.8, MCH 31.0, MCHC 34.9, RDW Std Deviation 42.1, RDW Coeff of Angie 12.9, Plt Count 216, MPV 8.8, Immature Gran % (Auto) 0.200, Neut % (Auto) 59.4, Lymph % (Auto) 24.8, Mora % (Auto) 10.2 H, Eos % (Auto) 4.7, Baso % (Auto) 0.7, Absolute Neuts (auto) 3.3, Absolute Lymphs (auto) 1.36, Nucleated RBC % 0 Radiography Diagnostic Testing: Radiology Impression Brain CT 11/30/24 17:01 IMPRESSION: No acute intracranial finding. Reading Location: [facility] Head/Neck CTA 11/30/24 17:02 IMPRESSION: Patent anterior and posterior intracranial and extracranial circulation without hemodynamically significant stenosis. Reading Location: [facility] Brain MRI 11/30/24 18:09 IMPRESSION: No acute intracranial abnormality. Mild chronic microvascular ischemic changes. Reading Location: [facility] Physical Exam Narrative GENERAL: cooperative HEENT: Atraumatic; normocephalic EYES; Anicteric, Normal Conjunctiva NECK; supple, normal thyroid, RESPIRATORY: Diminished to auscultation CARDIOVASCULAR: Regular S1 S2, GI: soft, normoactive bowel sounds, : No Renal angle tenderness; EXTREMITIES: No edema, no clubbing, MUSCULOSKELETAL: no muscle wasting NEURO: Awake; no lateralizing signs. SKIN: No Rash PSYCH; Flat affect Assessment & Plan Assessment/Plan (1) Facial swelling: PLAN: Plan Patient is a 54-year-old gentleman admitted with facial and lip swelling.Patient did experience subjective weakness involving the left extremities as well as numbness involving the left face. Admitted to a monitored bed as a case of possible TIA NIHSS NIHSS Nursing Documentation NIHSS Nursing Documentation: NIH Stroke Scale Start: 11/30/24 16:57 Freq: Status: Discharge Protocol: Activity Type Activity Date Activity User E-sign Co-sign Detail Recorded Client Recorded Date Recorded By Document 11/30/24 16:57 ET [id number] 11/30/24 16:58 ET 11/30/24 16:57 NIH Stroke Scale [NIHSS] A score of 0 is normal or asymptomatic . Total possible score is 42. Inpatient: RN or Physician to activate a stroke alert for onset of new stroke symptoms or with NIHSS increase >/= 3 points. Following change in neurological status, NIHSS will be performed per physician order or more frequently PRN. -1a. Level of Consciousness 0 - Alert; keenly responsive -1b. LOC Questions 0 - Answers BOTH questions correctly -1c. LOC Commands 0 - Performs BOTH tasks correctly -2. Best Gaze 0 - Normal -3. Visual 0 - No visual loss -4. Facial Palsy 1 - Minor paralysis ( flattened nasolabial fold , asymmetry on smiling) -5a. Left Arm 0 - No drift; arm holds 90 ( or 45) degrees for full 10 seconds -5b. Right Arm 0 - No drift; arm holds 90 ( or 45) degrees for full 10 seconds -6a. Left Leg 0 - No drift; leg holds 30- degree position for full 5 seconds -6b. Right Leg 0 - No drift; leg holds 30- degree position for full 5 seconds -7. Limb Ataxia 0 - Absent -8. Sensory 1 - Mild-to- moderate sensory loss; -9. Best Language 0 - No aphasia; normal -10. Dysarthria 0 - Normal -11. Extinction and Inattention 0 - No abnormality -Total 2 Query Text:A score of 0 is normal or asymptomatic. Total possible score is 42 . ED: Notify Physician for NIHSS increase by > / = 3 points. Inpatient: RN or Physician to activate a stroke alert for NIHSS increase of > / = 3 points. NIHSS: Ischemic Stroke/TIA Start: 11/30/24 19:27 Text: For PCU Patients: NIH and Neuro Check every 4 Status: Active hours, PRN and with change in RN caregiver. Freq: [id number] Protocol: Activity Type Activity Date Activity User E-sign Co-sign Detail Recorded Client Recorded Date Recorded By Document 12/01/24 04:40 [facility] [id number] 12/01/24 05:41 HERBER 12/01/24 04:40 -1a. Level of Consciousness 0 - Alert; keenly responsive -1b. LOC Questions 0 - Answers BOTH questions correctly -1c. LOC Commands 0 - Performs BOTH tasks correctly -2. Best Gaze 0 - Normal -3. Visual 0 - No visual loss -4. Facial Palsy 1 - Minor paralysis ( flattened nasolabial fold , asymmetry on smiling) -5a. Left Arm 0 - No drift; arm holds 90 ( or 45) degrees for full 10 seconds -5b. Right Arm 0 - No drift; arm holds 90 ( or 45) degrees for full 10 seconds -6a. Left Leg 0 - No drift; leg holds 30- degree position for full 5 seconds -6b. Right Leg 0 - No drift; leg holds 30- degree position for full 5 seconds -7. Limb Ataxia 0 - Absent -8. Sensory 1 - Mild-to- moderate sensory loss; -9. Best Language 0 - No aphasia; normal -10. Dysarthria 0 - Normal -11. Extinction and Inattention 0 - No abnormality -Total 2 Query Text:A score of 0 is normal or asymptomatic. Total possible score is 42 . ED: Notify Physician for NIHSS increase by > / = 3 points. Inpatient: RN or Physician to activate a stroke alert for NIHSS increase of > / = 3 points. Coma Scale [Assess] -Eye Opening Spontaneous -Motor Obeys Commands -Verbal Oriented [Total] -Coma Scale Total 15
[2024-12-01 08:28] LABS: Anion Gap 10 (5-15); BUN 15 mg/dL (4-19); BUN/Creat Ratio 16.4 RATIO (10-20); Calcium,Total 8.6 mg/dL (7.6-11.0); Carbon Dioxide 22.3 mmol/L (21.0-32.0); Chloride 108 mmol/L (98-108); Creatinine, Serum 0.92 mg/dL (0.70-1.20); EST Glomerular Filtration Rate 97 (>60); Estimated Creatinine Clearance 86.92 ml/min (50-250); Glucose 106 mg/dL (70-99); Sodium Level 140 mmol/L (133-145)
[2024-12-01 08:31] VITALS: BP 135/91; PULSE 77; RESP 16; TEMP 36.6; O2SAT 97
--- NOTE | 2024-12-01 08:57 | CASEMGMT ---
Social Work negative for TIA, therefore PHQ9 not completed. Vani SantamariaW
[2024-12-01] MEDS: Pantoprazole Sodium 40 MG Tablet PO (09:46)
[2024-12-01] MEDS: Aspirin 81 MG TAB.CHEW PO (09:46)
--- NOTE | 2024-12-01 09:54 | DS.PCM_ITS ---
Providers Date of Admission: 11/30/24 Date of Discharge: 12/01/24 Primary Care Physician: Dr. Timothy Marcus DO Reason For Visit: TIA Diagnosis Discharge Diagnosis (1) Facial swelling: Status: Acute Code(s): R22.0 - Localized swelling, mass and lump, head Plan Patient is a 54-year-old gentleman admitted with facial and lip swelling.Patient did experience subjective weakness involving the left extremities as well as numbness involving the left face. Admitted to a monitored bed as a case of possible TIA. Patient underwent subsequent evaluation with CTA of the head and neck as well as MRI of the brain all of which came back negative. There was a suspicion of possible idiopathic angioedema C1 esterase inhibitor as well as C4 complement sent to rule out idiopathic angioedema. Results of which were pending at the time of discharge plan is for patient to follow-up with primary care physician for results. Medications at Discharge Home Medications omeprazole 40 mg capsule,delayed release 40 mg PO DAILY 11/30/24 diphenhydramine HCl 25 mg capsule (Benadryl) 25 mg PO TID PRN allergic reaction #30 caps 12/01/24 prednisone 20 mg tablet 20 mg PO BID #14 tabs 12/01/24 Hospital Course Summary of Care Provided Minutes Spent on Discharge: 32 Physical Exam Narrative GENERAL: cooperative HEENT: Atraumatic; normocephalic EYES; Anicteric, Normal Conjunctiva NECK; supple, normal thyroid, RESPIRATORY: Diminished to auscultation CARDIOVASCULAR: Regular S1 S2, GI: soft, normoactive bowel sounds, : No Renal angle tenderness; EXTREMITIES: No edema, no clubbing, MUSCULOSKELETAL: no muscle wasting NEURO: Awake; no lateralizing signs. SKIN: No Rash PSYCH; Flat affect Weight / BMI Weight Weight: 79.1 kg Body Mass Index (BMI) 29.0 ABG / Lab / Microbiology Data 12/01/24 05:53 12/01/24 05:53 Laboratory: Laboratory Results - last 24 hr 11/30/24 17:01: POC Glucose 85 11/30/24 17:04: WBC 6.8, RBC 5.16, Hgb 16.2, Hct 45.7, MCV 88.6, MCH 31.4, MCHC 35.4, RDW Std Deviation 42.1, RDW Coeff of Angie 12.9, Plt Count 215, MPV 8.7, Immature Gran % (Auto) 0.300, Neut % (Auto) 57.1, Lymph % (Auto) 31.5, Solano % (Auto) 7.8, Eos % (Auto) 2.7, Baso % (Auto) 0.6, Absolute Neuts (auto) 3.9, Absolute Lymphs (auto) 2.13, Nucleated RBC % 0, PT 13.1, INR 1.0, APTT 25.8, Sodium 139, Potassium 4.0, Chloride 104, Carbon Dioxide 24.3, Anion Gap 11, BUN 15, Creatinine 1.02, Estim Creat Clear Calc 78.01, Est GFR (MDRD) Non-Af 86, BUN/Creatinine Ratio 14.5, Glucose 93, Calcium 9.0, Troponin T High Sens < 6 11/30/24 20:20: Troponin T Hi Sens 2 Hr < 6 11/30/24 22:05: Troponin T Hi Sens 4Hr < 6 12/01/24 05:53: WBC 5.5, RBC 4.84, Hgb 15.0, Hct 43.0, MCV 88.8, MCH 31.0, MCHC 34.9, RDW Std Deviation 42.1, RDW Coeff of Angie 12.9, Plt Count 216, MPV 8.8, Immature Gran % (Auto) 0.200, Neut % (Auto) 59.4, Lymph % (Auto) 24.8, Sol[place] % (Auto) 10.2 H, Eos % (Auto) 4.7, Baso % (Auto) 0.7, Absolute Neuts (auto) 3.3, Absolute Lymphs (auto) 1.36, Nucleated RBC % 0, Sodium 140, Potassium 4.0, Chloride 108, Carbon Dioxide 22.3, Anion Gap 10, BUN 15, Creatinine 0.92, Estim Creat Clear Calc 86.92, Est GFR (MDRD) Non-Af 97, BUN/Creatinine Ratio 16.4, G lucose 106 H, Calcium 8.6, Triglycerides 262 H, Cholesterol 193, LDL Cholesterol, Calc 98, VLDL Cholesterol 52 H, HDL Cholesterol 42, Cholesterol/HDL Ratio 4.57 Radiography Diagnostic Testing: Radiology Impression Brain CT 11/30/24 17:01 IMPRESSION: No acute intracranial finding. Reading Location: [facility] Head/Neck CTA 11/30/24 17:02 IMPRESSION: Patent anterior and posterior intracranial and extracranial circulation without hemodynamically significant stenosis. [facility] Brain MRI 11/30/24 18:09 IMPRESSION: No acute intracranial abnormality. Mild chronic microvascular ischemic changes. Reading Location: [facility] D/C Instructions Discharge Diet: No restrictions Discharge Activity: Return to Normal Activity Call your doctor if you observe: Fever of 101 or Higher, Shortness of breath, Fainting spells and Chest pain DC O2, CPAP, BIPAP Needs Home O2 Discharge instructions: No Meaningful Use Info Meaningful Use Meaningful Use Diagnoses (Choose all that apply): None applicable Ischemic Stroke Statin Dosing Therapy Reference: STATIN DOSE THERAPY REFERENCE: * Patients > 75 years receive moderate or high dose statin therapy. * Patients 75 years or YOUNGER should receive HIGH intensity statin dose unless contraindicated. You will be required to document reason for non-treatment if statin daily dose does not meet guidelines. HIGH DOSE STATIN THERAPY DAILY Atorvastatin > than or = to 40 mg Rosuvastatin > than or = to 20 mg Amlodipine + Atorvastatin > than or = to 2.5/40 mg Ezetimibe + Simvastatin 10/80 mg Simvastatin 80mg Discharge Plan Admission Admit Date/Time: 11/30/24 18:07 Attending Provider: Roland Cruz Primary Care Provider: Timothy Marcus Consulting Providers: Lester Solis Discharge Orders/Prescriptions Prescriptions: New prednisone 20 mg tablet 20 mg PO BID Qty: 14 0RF diphenhydramine HCl [Benadryl] 25 mg capsule 25 mg PO TID PRN (Reason: allergic reaction) Qty: 30 0RF Continued omeprazole 40 mg capsule,delayed release(DR/EC) 40 mg PO DAILY Discontinued Excedrin Extra Strength 250-250-65 mg tablet 1 tab PO Q4H PRN (Reason: headache) Referrals / Follow Up: Timothy Marcus DO [Primary Care Provider] - Within 1 Week Disposition Disposition (needs filled in before D/C Order can be placed): Home, Self Care Charges/Coding Visit Charges Inpatient E&M: 94745 Disch Hosp >30min
[2024-12-01 09:58] VITALS: BP 139/87; PULSE 82; RESP 14; TEMP 36.7; O2SAT 97
--- NOTE | 2024-12-01 10:23 | CASEMGMT ---
RN CM noted DC order in. Into pt room, pt states I at home, lives with and has family support. Denies any DC needs at this time.
[2024-12-05 15:08] LABS: C1 Esterase Inhibitor, Quant 25 mg/dL (21-39)
== END 2024-12-01 09:58 | disposition home or self-care (01) ==
LOC: ED 18:31 → PCU 19:04
PROVIDERS: Admitting Provider Family Medicine; Emergency Provider Emergency Medicine; PCP Family Medicine; Visit Provider Internal Medicine
DX: R22.0 Localized swelling, mass and lump, head (principal); R29.898 Other symptoms and signs involving the musculoskeletal system; R29.810 Facial weakness; R20.2 Paresthesia of skin; R20.0 Anesthesia of skin; K21.9 Gastro-esophageal reflux disease without esophagitis; E78.5 Hyperlipidemia, unspecified; R51.9 Headache, unspecified; R05.9 Cough, unspecified; Z79.82 Long term (current) use of aspirin; Z79.899 Other long term (current) drug therapy; R03.0 Elevated blood-pressure reading, without diagnosis of hypertension; H53.8 Other visual disturbances
CPT/HCPCS: 36415; 70450; 70496; 70498; 70551; 80048; 80061; 82962; 84484; 85025; 85610; 85730; 86160; 93005; 93306; 94762; 99221; 99285; Q9957; Q9967; A4216; G0378

== ENCOUNTER → 2024-12-16 | Day surgery (SDC) | payer OTHER, SELFPAY ==
--- NOTE | 2024-12-16 06:49 | MRI_ITS ---
PROCEDURE: SPINE LUMBAR (ROUTINE) 12/16/2024 REASON FOR EXAM: PAIN TECHNIQUE: Multiplanar and multisequence images were obtained without IV contrast administration. FINDINGS: No acute fracture or malalignment. Vertebral marrow signal appears within limits. Conus Medullaris: Conus appears to terminate at T12-L1 and appears within limits. Cauda equina appears within limits. L1-2: Disc desiccation and [id number] loss of disc height. No central or foraminal narrowing. L2-3: Disc height appears within limits. No central or foraminal narrowing. L3-4: Mild appearing disc desiccation. Disc heights appears within limits. No central or foraminal narrowing. L4-5: Disc height appears within limits. No central or foraminal narrowing. L5-S1: Mild disc desiccation. Disc height appears within limits. No central or foraminal narrowing. Appearance of lower lumbar facet degenerative changes suggested. Limited images of the retroperitoneum with note of a 1.4 cm possibly cyst left ovary. MRI/Spine Lumbar (Routine) IMPRESSION: Spondylosis/discogenic change without significant appearing central or foramina l narrowing as above. Reading Location: [id number]
[2024-12-16 09:32] VITALS: BP 151/97; PULSE 77; RESP 18; O2SAT 98
[2024-12-16] MEDS: Lidocaine Jelly 2% 20 ML Syringe (URO-JET) 1 APPLIC (09:48)
== END | disposition home or self-care (01) ==
PROVIDERS: Surgery; PCP Family Medicine; Referring Provider Student in an Organized Health Care Education/Training Program; Visit Provider Student in an Organized Health Care Education/Training Program
PROC: F00ZJWZ Instrumental Swallowing and Oral Function Assessment using Swallowing Equipment (ICD-10-PCS; CPT 43235; principal; 2024-12-16 09:25)
DX: K21.9 Gastro-esophageal reflux disease without esophagitis (principal)
CPT/HCPCS: 91010

== ENCOUNTER → 2024-12-22 | Outpatient (CLI) | payer OTHER, SELFPAY ==
--- NOTE | 2024-12-22 08:44 | RAD_ITS ---
PROCEDURE: ESOPHAGUS DUAL CONTRAST 12/22/2024 REASON FOR EXAM: CHECK HIATAL HERNIA TECHNIQUE: The patient ingested barium. Fluoroscopic imaging of the esophagus was obtained. 1 minute and 14 seconds of fluoroscopy. 16.5 mGy. 85 fluoroscopic images were obtained. COMPARISON: None FINDINGS: There is evidence of an hiatal hernia. There is evidence of narrowing at the gastroesophageal junction. No evidence of obstruction to the flow of contrast. The patient ingested a 12 mm tablet the barium. The patient had no issue with the tablet. RAD/Esophagus Dual Contrast IMPRESSION: Small sliding hiatal hernia with narrowing at the gastroesophageal junction. Reading Location: [facility]
== END | disposition home or self-care (01) ==
LOC: RAD 08:43
PROVIDERS: PCP Family Medicine; Referring Provider Surgery; Visit Provider Surgery
DX: K44.9 Diaphragmatic hernia without obstruction or gangrene (principal)
CPT/HCPCS: 74221